=== PATIENT | female | born 2000 | race Caucasian/White ===

== ENCOUNTER 2020-03-21 16:13 | Emergency (ER) | payer SELFPAY ==
--- NOTE | 2020-03-21 17:02 | EDPHYS ---
Physician Documentation [facility] Name: Ruth Cortes Age: 19 yrs Sex: Female : 2000 Arrival Date: 03/21/2020 Time: 16:17 Bed 11 Private MD: ED Physician Beverly Joens HPI: 03/21 16:44 This 19 yrs old Female presents to ER via Ambulatory with complaints of kb Menstrual Cramps. 16:45 The patient presents with vaginal bleeding that is. Onset: The symptoms/episode kb began/occurred this morning. Modifying factors: The symptoms are alleviated by over the counter medications, NSAIDs, the symptoms are aggravated by nothing. Associated signs and symptoms: Pertinent positives: cramping, vaginal bleeding, Pertinent negatives: constipation, diarrhea, dyspareunia, dysuria, fever, hematuria, nausea, urinary frequency, vaginal discharge, vomiting. Severity of symptoms: At their worst the symptoms were moderate, in the emergency department the symptoms have improved, moderately. The patient has experienced similar episodes in the past, a few times, but today's symptoms are worse, more painful. The patient has not recently seen a physician. Pt reports she started her period this morning and has had terrible menstrual cramps. States she is about 2 weeks early and never has cramps this bad. Denies fever, vomiting, diarrhea. States she was nauseous earlier today. Took ibuprofen prior to arrival which decreased her pain . 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 - Social history:: Smoking status: Patient denies any tobacco usage or history of. ROS: 16:44 Constitutional: Negative for fever, chills, and weight loss, Cardiovascular: Negative kb for chest pain, palpitations, and edema, Respiratory: Negative for shortness of breath, cough, wheezing, and pleuritic chest pain, Back: Negative for injury and pain, MS/Extremity: Negative for injury and deformity, Skin: Negative for injury, rash, and discoloration, Neuro: Negative for headache, weakness, numbness, tingling, and seizure. 16:44 Abdomen/GI: Positive for abdominal cramps. 16:44 : Positive for vaginal bleeding. Exam: 16:44 Constitutional: This is a well developed, well nourished patient who is awake, alert, kb and in no acute distress. Head/Face: Normocephalic, atraumatic. Chest/axilla: Normal chest wall appearance and motion. Nontender with no deformity. No lesions are appreciated. Cardiovascular: Regular rate and rhythm with a normal S1 and S2. No gallops, murmurs, or rubs. Normal PMI, no JVD. No pulse deficits. Respiratory: Lungs have equal breath sounds bilaterally, clear to auscultation and percussion. No rales, rhonchi or wheezes noted. No increased work of breathing, no retractions or nasal flaring. Back: No spinal tenderness. No costovertebral tenderness. Full range of motion. Skin: Warm, dry with normal turgor. Normal color with no rashes, no lesions, and no evidence of cellulitis. MS/ Extremity: Pulses equal, no cyanosis. Neurovascular intact. Full, normal range of motion. Neuro: Awake and alert, GCS 15, oriented to person, place, time, and situation. Cranial nerves II-XII grossly intact. Motor strength 5/5 in all extremities. Sensory grossly intact. Cerebellar exam normal. Normal gait. 16:44 Abdomen/GI: Inspection: abdomen appears normal, Bowel sounds: normal, in all quadrants, Palpation: soft, in all quadrants, mild abdominal tenderness, in the right lower quadrant and left lower quadrant. Vital Signs: 16:25 BP 124 / 82; Pulse 70; Resp 15 S; Temp 97.2(TE); Pulse Ox 100% on R/A; Weight 107.05 kg ca1 (R); Height 5 ft. 7 in. (170.18 cm) (R); Pain 4/10; 16:25 Body Mass Index 36.96 (107.05 kg, 170.18 cm) ca1 MDM: 16:38 Patient medically screened. kb 16:43 Data reviewed: vital signs, nurses notes. Data interpreted: Pulse oximetry: on room air kb is 100 %. Interpretation: normal. Counseling: I had a detailed discussion with the patient and/or guardian regarding: the historical points, exam findings, and any diagnostic results supporting the discharge/admit diagnosis, lab results, the need for outpatient follow up, an OB/Gyne specialist, to return to the emergency department if symptoms worsen or persist or if there are any questions or concerns that arise at home. 03/21 16:38 Order name: Urine --Ancillary (enter results); Complete Time: 17:17 kb 03/21 16:38 Order name: Urine Dipstick--Ancillary (enter results); Complete Time: 17:17 kb Administered Medications: No medications were administered Disposition: 18:46 Co-signature as Attending Physician, Beverly Jones MD. ma2 Disposition: 03/21/20 17:01 Discharged to Home. Impression: Dysmenorrhea, unspecified. - Condition is Stable. - Discharge Instructions: Dysmenorrhea, [id number]. - Prescriptions for Ibuprofen 800 mg Oral Tablet - take 1 tablet by ORAL route every 8 hours As needed take with food; 30 tablet. - Medication Reconciliation Form, Thank You Letter, Antibiotic Education, Prescription Opioid Use, Work release form form. - Follow up: Emergency Department; When: As needed; Reason: Worsening of condition. Follow up: Private Physician; When: 2 - 3 days; Reason: Recheck today's complaints, Continuance of care, Re-evaluation by your physician. Signatures: Dispatcher [employer] Nikki Luna, ADDIE GARZA-Michela Dinh, Beverly Sinha RN, MD MD ma2 Acob, Cheryl, RN RN ca1 Corrections: (The following items were deleted from the chart) 17:31 17:01 03/21/2020 17:01 Discharged to Home. Impression: Dysmenorrhea, unspecified. iw Condition is Stable. Discharge Instructions: Dysmenorrhea, [id number]. Prescriptions for Ibuprofen 800 mg Oral Tablet - take 1 tablet by ORAL route every 8 hours As needed take with food; 30 tablet. and Forms are Medication Reconciliation Form, Thank You Letter, Antibiotic Education, Prescription Opioid Use. Follow up: Emergency Department; When: As needed; Reason: Worsening of condition. Follow up: Private Physician; When: 2 - 3 days; Reason: Recheck today's complaints, Continuance of care, Re-evaluation by your physician. kb
--- NOTE | 2020-03-21 17:02 | ER ---
Nurse's Notes [facility] Name: Ruth Cortes Age: 19 yrs Sex: Female : 2000 Arrival Date: 03/21/2020 Time: 16:17 Bed 11 Private MD: Diagnosis: Dysmenorrhea, unspecified Presentation: 03/21 16:25 Chief complaint: Patient states: 2 weeks early on my menstrual period which started ca1 today. Severe menstrual cramps started today. Took Ibuprofen and started to feel better. Reports nausea. Denies vomiting. Coronavirus screen: Proceed with normal triage. Patient denies a cough. Patient denies shortness of breath or difficulty breathing. Patient denies measured and/or subjective temperature greater than 100.4F prior to today's visit. Patient denies travel on a cruise ship or to a country the [facility] currently lists as an affected area. Patient denies contact with known and/or suspected case of COVID-19. Ebola Screen: Patient negative for fever greater than or equal to 101.5 degrees Fahrenheit, and additional compatible Ebola Virus Disease symptoms Patient denies exposure to infectious person. Patient denies travel to an Ebola-affected area in the 21 days before illness onset. No symptoms or risks identified at this time. Initial Sepsis Screen: Does the patient meet any 2 criteria? No. Patient's initial sepsis screen is negative. Does the patient have a suspected source of infection? No. Patient's initial sepsis screen is negative. Risk Assessment: Do you want to hurt yourself or someone else? Patient reports no desire to harm self or others. Onset of symptoms was March 21, 2020. 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 - Social history:: Smoking status: Patient denies any tobacco usage or history of. Screenin:58 Abuse screen: Denies threats or abuse. Denies injuries from another. Nutritional ca1 screening: No deficits noted. Tuberculosis screening: No symptoms or risk factors identified. Fall Risk None identified. Assessment: 16:58 General: Appears in no apparent distress. comfortable, Behavior is calm, cooperative, ca1 appropriate for age. Pain: Complains of pain in left lower quadrant and right lower quadrant Pain currently is 4 out of 10 on a pain scale. Is intermittent. Neuro: Level of Consciousness is awake, alert, obeys commands, Oriented to person, place, time, situation. Cardiovascular: Heart tones S1 S2 present Capillary refill < 3 seconds Patient's skin is warm and dry. Respiratory: Airway is patent Respiratory effort is even, unlabored, Respiratory pattern is regular, symmetrical, Breath sounds are clear bilaterally. GI: Abdomen is round non-distended, Bowel sounds present X 4 quads. Abd is soft and non tender X 4 quads. : No signs and/or symptoms were reported regarding the genitourinary system. EENT: No signs and/or symptoms were reported regarding the EENT system. Derm: Skin is intact, is healthy with good turgor, Skin is pink, warm \T\ dry. Musculoskeletal: Circulation, motion, and sensation intact. Capillary refill < 3 seconds. Vital Signs: 16:25 BP 124 / 82; Pulse 70; Resp 15 S; Temp 97.2(TE); Pulse Ox 100% on R/A; Weight 107.05 kg ca1 (R); Height 5 ft. 7 in. (170.18 cm) (R); Pain 4/10; 16:25 Body Mass Index 36.96 (107.05 kg, 170.18 cm) ca1 ED Course: 16:17 Patient arrived in ED. as 16:21 [facility] kb 16:21 Beverly Jones MD is Attending Physician. kb 16:27 Triage completed. ca1 16:28 Arm band placed on right wrist. ca1 16:58 Suly Raza, YAHIR is Primary Nurse. ca1 16:58 Patient has correct armband on for positive identification. ca1 16:58 No provider procedures requiring assistance completed. Patient did not have IV access ca1 during this emergency room visit. Administered Medications: No medications were administered Outcome: 17:01 Discharge ordered by . kb 17:31 Discharged to home ambulatory. iw 17:31 Condition: good 17:31 Discharge instructions given to patient, Instructed on discharge instructions, follow up and referral plans. medication usage, Demonstrated understanding of instructions, follow-up care, medications, Prescriptions given X 1. 17:31 Patient left the ED. iw Signatures: Nikki Borja, ADDIE GARZA-Ivet Kaminski Irene, RN RN iw Suly Raza RN RN ca1 Corrections: (The following items were deleted from the chart) 16:28 16:25 Acuity: SATYA 3 ca1 ca1 16:28 16:25 BP 124 / 82; Pulse 70bpm; Resp 15bpm; Spontaneous; Pulse Ox 100% RA; Temp 97.2F ca1 Temporal; 107.05 kg Reported; Height 5 ft. 7 in. Reported; BMI: 36.9; ca1
[2020-03-21 17:16] LABS: Urine Blood 3+ (NEG); Urine Glucose NEGATIVE (NEG); Urine Protein 2+ (NEG); Urine Specific Gravity 1.025 (1.005-1.030); Urine pH 7.5 (5.0-7.0)
[2020-03-21 17:38] VITALS: BP 124/82; TEMP 97.2; O2SAT 100
== END 2020-03-21 17:31 | disposition home or self-care (01) ==
LOC: ER 16:13
DX: N94.6 Dysmenorrhea, unspecified (principal); Z88.3 Allergy status to other anti-infective agents
CPT/HCPCS: 81003; 81025; 99282

== ENCOUNTER 2022-06-25 01:28 | Emergency (ER) | payer OTHER, SELFPAY ==
--- OUTSIDE RECORDS SUMMARY | 2022-06-25 01:31 | XMS REPORT | Continuity of Care Document ---
:2000 Author Organization [facility] t Address [address] [place] [address] Care Team Providers Name Role Phone PCP, PATIENT DOES NOT HAVE A Primary Care Physician Unavaila ARGENIS Mooney Attending Clinician Unavailable Argenis Sauceda MD Attending Clinician Doctor Unassigned, [place] Attending Clinician Unavailable Payers Payer Name Policy Type Policy Number Effective Date Expiration Date [facility] [id number] 2021 MEDICAID 00:00:00 Problems Condition Condition Condition Status Onset Resolution Last Treating Co mments Source Name Details Category Date Date Treatment Clinician Date Disease Active U nivers care and care and 8-18 [place] Medical immediatel immediatel Br [facility] y after y after delivery delivery Missed Missed Disease Active 2020-10 Univers menses menses 2-21 ity of 00:00: [address] Allergies, Adverse Reactions, Alerts Allergy Allergy Status Severity Reaction(s) Onset Inactive Treating Comm ents Source Name Type Date Date Clinician Azithrom Propensi Active Hives Univer s ycin ty to 8-02 ity of (Bulk) adverse 00:00: [place] reaction [address] [place] [address] AZITHROM DRUG Active Hives Univers YCIN 8-02 ity of (BULK) 00:00: [address] Social History Social Habit Start Date Stop Date Quantity Comments Source History of Passive smoker University of tobacco use [facility] Alcohol intake 2022-05-07 2022-05-07 Ex-drinker [facility] 00:00:00 00:00:00 (finding) [facility] Exposure to 2022-04-26 2022-05-06 Not sure [facility]-CoV-2 00:00:00 12:38:00 [facility] (event) [place] Tobacco use and 2022-05-06 2022-05-06 Smokeless tobacco Un iversity of exposure 00:00:00 00:00:00 non-user [facility] Sex Assigned At [birth year] Universit y of 00:00:00 00:00:[address] [facility] Smoking Status Start Date Stop Date Source Never smoked tobacco [facility] Medications Ordered Filled Start Stop Current Ordering Indication Dosage Frequency Signature Comments Components Source Medication Medication Date Date Medication? Clinician (SIG) Name Name levonorgest 2021- No [id number] 1{devic Univers reL 06-17- e} ity of (MIRENA) 21:15: 20:17 [place] IUD 1 00 :00 [facility] levonorgest 2021- No [id number] 1{devic 1 Device, Univers reL 06-17- e} Intrauteri ity of (MIRENA) 21:15: 20:17 ne, ONCE, [place] IUD 1 00 :00 1 dose, On [facility] 06/17/22 Branch at 1615, Routine levonorgest 2021- No [id number] 1{devic Univers reL 06-17-08 e} ity of (MIRENA) 21:15: 20:17 [place] IUD 1 00 :00 [facility] levonorgest 2021- No [id number] 1{devic 1 Device, Univers reL 06-17-08 e} Intrauteri ity of (MIRENA) 21:15: 20:17 ne, ONCE, [place] IUD 1 00 :00 1 dose, On [facility] 06/17/22 Branch at 1615, Routine No known No No known Unive rs medications 06-17 medication it y of 15:23: s [address] 2021- No [id number] 1{tbl} Take 1 Univers vitamin 05-28 109 tablet by ity of w/FA 00:00: 00:00 mouth in [place] (THRIVITE 00 :00 the Medical RX) tablet morning. Bran h 2021- No [id number] 1{tbl} Take 1 Univers vitamin 05-28- 109 tablet by ity of w/FA 00:00: 00:00 mouth in [place] (THRIVITE 00 :00 the Medical RX) tablet morning. [facility] miSOPROStoL 2021- No [id number] 200ug Take 1 Univers 200 mcg 8-08 tablet by ity of tablet 00:00: 00:00 mouth in [place] 00 :00 the Medical morning Branch and 1 tablet in the evening. Take the night before and the morning of the procedure. hydrocortis 2021- No [id number] 25mg Insert 1 Univers one 25 mg 8-08 Suppositor ity of suppository 00:00: 00:00 y into [place] 00 :00 rectum in [facility] morning and 1 Suppositor y in the evening. polyethylen 2021- No [id number] 1{packe Take 1 Univers e glycol 8-08 t} Packet by ity o f 3350 00:00: 00:00 mouth [place] (MIRALAX) 00 :00 every 24 Medica l 17 gram (twenty-fo Branch powder ur) hours. miSOPROStoL 2021- No [id number] 200ug Take 1 Univers 200 mcg 8-08 tablet by ity of tablet 00:00: 00:00 mouth in [place] 00 :00 the [facility] Branch and 1 tablet in the evening. Take the night before and the morning of the procedure. hydrocortis 2021- No [id number] 25mg Insert 1 Univers one 25 mg 818 09-08 Suppositor ity of suppository 00:00: 00:00 y into [place] 00 :00 rectum in [facility] the [place] morning and 1 Suppositor y in the evening. polyethylen 2021- No [id number] 1{packe Take 1 Univers e glycol 8-18 09-08 t} Packet by ity o f 3350 00:00: 00:00 mouth [place] (MIRALAX) 00 :00 every 24 Medica l 17 gram (twenty-fo Branch powder ur) hours. docusate 2021- No [id number] 200mg Take 2 Univers 100 mg 05-08 109 capsules ity of capsule 00:00: 00:00 by mouth [place] 00 :00 once daily Medical as needed Branch for Constipati on. docusate 2021- No [id number] 200mg Take 2 Univers 100 mg 05-08 109 capsules ity of capsule 00:00: 00:00 by mouth [place] 00 :00 once daily Medical as needed Branch for Constipati on. Immunizations Ordered Filled Immunization Date Status Comments [facility] e Immunization Name Name TDAP 2022-02-18 Completed [facility] 00:00:[address] [facility] TDAP 2022-02-18 Completed [facility] 00:00:[address] [facility] TDAP 2022-02-18 Completed [facility] 00:00:[address] [facility] SARS-COV-2 COVID-19 2021-10-26 Completed Unive rsity of PFIZER VACCINE 00:00:00 [facility] SARS-COV-2 COVID-19 2021-10-26 Completed Unive rsity of PFIZER VACCINE 00:00:00 [facility] SARS-COV-2 COVID-19 2021-10-26 Completed Unive rsity of PFIZER VACCINE 00:00:00 [facility] SARS-COV-2 COVID-19 2021-06-03 Completed Unive rsity of PFIZER VACCINE 00:00:00 [facility] SARS-COV-2 COVID-19 2021-06-03 Completed Unive rsity of PFIZER VACCINE 00:00:00 [facility] SARS-COV-2 COVID-19 2021-06-03 Completed Unive rsity of PFIZER VACCINE 00:00:00 [facility] Vital Signs Vital Name Observation Time Observation Value Comments Source Systolic blood 2022-06-17 15:51:00 114 mm[Hg] Univer sity of pressure [facility] Diastolic blood 2022-06-17 15:51:00 78 mm[Hg] Unive rsity of pressure [facility] Heart rate 2022-06-17 15:51:00 62 /min Universi [facility] Body temperature 2022-06-17 15:51:00 36.78 Reina Univ ersity of [facility] Respiratory rate 2022-06-17 15:51:00 18 /min [facility] Body height 2022-06-17 15:51:00 170.2 cm [facility] Body weight 2022-06-17 15:51:00 109.317 kg [facility] BMI 2022-06-17 15:51:00 37.75 kg/m2 [facility] Procedures Procedure Date / Time Performing Clinician Source Performed POCT TEST 2022-06-17 00:00:00 Argenis Sauceda [facility] DME/SUPPLY JUSTIFICATION 2022-05-24 05:01:00 Doctor Unassigned, No [facility] Name [facility] Encounters Start End Encounter Admission Attending Care Care Encounter Source Date/Time Date/Time Type Type Clinicians Facility Department ID 2022-06-29 2022-06-29 Outpatient R ARGENIS SAUCEDA [facility] [id number] Univers 09:30:00 09:30:00 [id number] ity [facility] 2022-06-29 2022-06-29 Outpatient R ARGENIS SAUCEDA [facility] [id number] Univers 09:30:00 09:30:00 ity [facility] 2022-06-17 2022-06-17 Office Argenis Sauceda [facility] [id number] Univers 10:30:00 11:38:13 Visit YASMEEN [id number] it y of [id number] [facility] [id number] [facility] [address] Branch 2022-05-24 2022-05-24 Orders Doctor STEVO [id number] Univers 00:00:00 00:00:00 Only Unassigned, JOEL [id number] ity of [place] [facility] [id number] [place] [id number] [place] [address] Branch Results Test Description Test Time Test Comments Results Result Comments Source POCT TEST 2022-06-17 15:59:00 Test Item Value Reference Range Interpretation Comme nts POCT PREG (test code = 1605) Negative On board controls acceptable with C Line (test code = 3574) Yes POCT PREG LOT # (test code = 3575) POCT PREG TEST DATE (test code = 3576) [id number] 15:59:00 Test Item Value Reference Range Interpretation Comments POCT PREG (test code = 1605) Negative On board controls acceptable with C Yes Line (test code = 3574) POCT PREG LOT # (test code = 3575) POCT PREG TEST DATE (test code = 3576) [facility]
--- NOTE | 2022-06-25 01:46 | EDPHYS ---
Physician Documentation [facility] Name: Ruth Cortes Age: 21 yrs Sex: Female : 2000 Arrival Date: 06/25/2022 Time: 01:32 Bed 6 Private MD: ED Physician Christopher Chung HPI: 06/25 01:42 This 21 yrs old Female presents to ER via Unassigned with complaints of Hives. kb 01:42 The patient's rash thought to be caused by insect bites. The rash is located on the kb body diffusely. The rash can be described as erythematous. Onset: The symptoms/episode began/occurred 2 day(s) ago. Associated signs and symptoms: Pertinent positives: itching. Severity of symptoms: At their worst the symptoms were moderate in the emergency department the symptoms are unchanged. Treatment given at home: Benadryl, OTC lotion/cream. The patient has not experienced similar symptoms in the past. The patient has not recently seen a physician. Pt reports she has diffuse itching and red spots after sleeping on her brothers couch 2 days ago. 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 - Social history:: Smoking status: Reported history of juuling and/or vaping. ROS: 01:40 Constitutional: Negative for fever, chills, and weight loss. kb 01:40 Skin: Positive for rash, diffusely. 01:40 All other systems are negative. Exam: 01:40 Constitutional: This is a well developed, well nourished patient who is awake, alert, kb and in no acute distress. Head/Face: Normocephalic, atraumatic. ENT: Moist Mucous membranes Cardiovascular: Regular rate and rhythm with a normal S1 and S2. No gallops, murmurs, or rubs. No pulse deficits. Respiratory: Respirations even and unlabored. No increased work of breathing. Talking in full sentences MS/ Extremity: Pulses equal, no cyanosis. Neurovascular intact. Full, normal range of motion. Neuro: Awake and alert, GCS 15, oriented to person, place, time, and situation. Moves all extremities. Normal gait. Psych: Awake, alert, with orientation to person, place and time. Behavior, mood, and affect are within normal limits. 01:40 Skin: rash a moderate rash is noted, and is diffusely located, apparent insect bites. Vital Signs: 01:44 BP 111 / 71; Pulse 68; Resp 18; Temp 98.2; Pulse Ox 100% ; Weight 108.86 kg; Height 5 tw5 ft. 7 in. (170.18 cm); Pain 5/10; 01:44 Body Mass Index 37.59 (108.86 kg, 170.18 cm) tw5 MDM: 01:34 Patient medically screened. rn 01:40 Data reviewed: vital signs, nurses notes. Data interpreted: Pulse oximetry: on room air kb is 100 %. Interpretation: normal. Counseling: I had a detailed discussion with the patient and/or guardian regarding: the historical points, exam findings, and any diagnostic results supporting the discharge/admit diagnosis, the need for outpatient follow up, a family practitioner, to return to the emergency department if symptoms worsen or persist or if there are any questions or concerns that arise at home. Administered Medications: 01:51 Drug: Pepcid (famotidine) 20 mg Route: PO; jb4 01:51 Follow up: Response: Medication administered at discharge. jb4 01:51 Drug: Atarax (hydrOXYzine) 25 mg Route: PO; jb4 01:51 Follow up: Response: Medication administered at discharge. jb4 Disposition: 02:16 Co-signature as Attending Physician, Christopher Chung MD. rn Disposition Summary: 06/25/22 01:45 Discharge Ordered Location: Home kb Condition: Stable kb Diagnosis - Insect bite - diffuse kb Followup: kb - With: Emergency Department - When: As needed - Reason: Worsening of condition Followup: kb - With: Private Physician - When: 2 - 3 days - Reason: Recheck today's complaints, Continuance of care, Re-evaluation by your physician Discharge Instructions: - Discharge Summary Sheet kb - Insect Bite, Adult, [id number] kb Forms: - Medication Reconciliation Form kb - Thank You Letter kb - Antibiotic Education kb - Prescription Opioid Use kb Prescriptions: - Hydroxyzine HCl 25 mg Oral Tablet - take 1 tablet by ORAL route every 6 hours As needed; 30 tablet; Refills: 0, kb Product Selection Permitted - Pepcid 20 mg Oral Tablet - take 1 tablet by ORAL route every 12 hours for 5 days; 10 tablet; Refills: 0, kb Product Selection Permitted Signatures: Nikki Borja, Christopher Bolivar MD MD rn Bryson, James, RN RN jb4 Razia Andre tw5 Corrections: (The following items were deleted from the chart) 01:43 01:42 Treatment given at home: nazanin Arredondo kb
--- NOTE | 2022-06-25 01:54 | ER ---
Nurse's Notes [facility] Name: Ruth Cortes Age: 21 yrs Sex: Female : 2000 Arrival Date: 06/25/2022 Time: 01:32 Bed 6 Private MD: Diagnosis: Insect bite - diffuse Presentation: 06/25 01:44 Chief complaint: Patient states: "I spent the night at my brothers house and I woke up tw5 feeling really itchy, as the day as gone on the bites are getting worse.". Coronavirus screen: Vaccine status: Patient reports receiving the 2nd dose of the covid vaccine. Downstream. Ebola Screen: Patient negative for fever greater than or equal to 101.5 degrees Fahrenheit, and additional compatible Ebola Virus Disease symptoms Patient denies exposure to infectious person. Patient denies travel to an Ebola-affected area in the 21 days before illness onset. Risk Assessment: Do you want to hurt yourself or someone else? Patient reports no desire to harm self or others. 01:44 Method Of Arrival: Ambulatory tw5 01:44 Acuity: SATYA 4 tw5 Triage Assessment: 01:47 General: Appears in no apparent distress. Behavior is calm, cooperative. Pain: Pain tw5 currently is 5 out of 10 on a pain scale. KICK BOXER: 01:47 LMP 06/25/2022 tw5 Historical: - Allergies: 01:47 Zithromax; tw5 - PMHx: 01:47 None; tw5 - Immunization history:: Flu vaccine is not up to date. - Social history:: Smoking status: Reported history of juuling and/or vaping. Screenin:52 Abuse screen: Denies threats or abuse. Nutritional screening: No deficits noted. jb4 Tuberculosis screening: No symptoms or risk factors identified. Fall Risk None identified. Assessment: 01:52 Reassessment: Patient appears in no apparent distress at this time. Patient and/or jb4 family updated on plan of care and expected duration. Pain level reassessed. Patient is alert, oriented x 3, equal unlabored respirations, skin warm/dry/pink. Vital Signs: 01:44 BP 111 / 71; Pulse 68; Resp 18; Temp 98.2; Pulse Ox 100% ; Weight 108.86 kg; Height 5 tw5 ft. 7 in. (170.18 cm); Pain 5/10; 01:44 Body Mass Index 37.59 (108.86 kg, 170.18 cm) tw5 ED Course: 01:32 Patient arrived in ED. ja2 01:34 Christopher Chung MD is Attending Physician. rn 01:40 Nik[facility] Bor[facility]-C [facility]. kb 01:44 José Luis Riley, RN is Primary Nurse. jb4 01:47 Triage completed. tw5 01:47 Arm band placed on. tw5 01:52 Patient has correct armband on for positive identification. Bed in low position. Call jb4 light in reach. Side rails up X 1. Client placed on continuous cardiac and pulse oximetry monitoring. NIBP monitoring applied. 01:52 No provider procedures requiring assistance completed. Patient did not have IV access jb4 during this emergency room visit. Administered Medications: 01:51 Drug: Pepcid (famotidine) 20 mg Route: PO; jb4 01:51 Follow up: Response: Medication administered at discharge. jb4 01:51 Drug: Atarax (hydrOXYzine) 25 mg Route: PO; jb4 01:51 Follow up: Response: Medication administered at discharge. jb4 Medication: 01:52 VIS not applicable for this client. jb4 Outcome: 01:45 Discharge ordered by . kb 01:52 Discharged to home ambulatory. jb4 01:52 Condition: stable 01:52 Discharge instructions given to patient, Instructed on discharge instructions, follow up and referral plans. medication usage, Demonstrated understanding of instructions, follow-up care, medications, Prescriptions given X 2. 01:53 Patient left the ED. jb4 Signatures: Nikki Borja FNP-C FNP-Skipb Christopher Chung MD MD rn Bryson, James, RN RN jb4 Erin Borjas Artemio Andrefany tw5
[2022-06-25] MEDS ORDERED: FAMOTIDINE 20 MG TAB ONE (01:56)
[2022-06-25] MEDS ORDERED: hydrOXYzine HCL 25 MG TAB ONE (01:56)
[2022-06-26 12:48] VITALS: BP 111/71; TEMP 98.2; O2SAT 100
== END 2022-06-25 01:53 | disposition home or self-care (01) ==
LOC: ER 01:28
DX: R21 Rash and other nonspecific skin eruption (principal); W57.XXXA Bitten or stung by nonvenomous insect and other nonvenomous arthropods, initial encounter
CPT/HCPCS: 99283

== ENCOUNTER 2023-07-15 07:34 | Emergency (ER) | payer BC ==
--- OUTSIDE RECORDS SUMMARY | 2023-07-15 07:40 | XMS REPORT | Continuity of Care Document ---
:2000 Author Organization [facility] t Address [address] [place] [address]. [address] [place] [id number] Care Team Providers Name Role Phone Collins Miller Primary Care Physician KELI GILLTETE Attending Clinician Unavailable Collins Miller Attending Clinician COLLINS SEVILLA Attending Clinician Unavailable CHELSEA NOEL Attending Clinician Unavailable CHELSEA NOEL Attending Clinician Unavailable HANNAH MORRISON Attending Clinician Unavailable HANNAH MORRISON Attending Clinician Unavailable Doctor Unassigned, [place] Attending Clinician Unavailable 2, [facility] Attending Clinician Unavailable UNKNOWN, ATTENDING Attending Clinician Unavailable CAITIE LEI Attending Clinician Unavailable Keli Gillette MD Attending Clinician Caitie Lei MD Attending Clinician Regan Santillan MD Attending Clinician [phone] Jaden Oneal MD Attending Clinician Salvatore Franklin CRNA Attending Clinician Only, [facility] Attending Clinician Unavailable Pob, [facility] Main Attending Clinician Unavailable 2, [facility] Room Attending Clinician Unavailable Sushil Rm MD Attending Clinician SUSHIL RM Attending Clinician Unavailable SUSHIL RM Attending Clinician Unavailable Ultrasound, [facility] Attending Clinician Unavailable Mayra Crowley MD Attending Clinician [phone] MAYRA CROWLEY Attending Clinician Unavailable 1, [facility] Room Attending Clinician Unavailable Bandar Welsh MD Attending Clinician [phone] BANDAR WELSH Attending Clinician Unavailable Nusrat Wilder Attending Clinician KELI GILLETTE Admitting Clinician Unavailable CAITIE LEI Admitting Clinician Unavailable Keli Gillette MD Admitting Clinician Caitie Lei MD Admitting Clinician Payers Payer Name Policy Type Policy Number Effective Date Expiration Date Maria L [facility] [id number] 2021 MEDICAID 00:00:00 Problems Condition Condition Condition [...] Univers menses menses 2-21 ity of 00:00: [address] Allergies, Adverse Reactions, Alerts Allergy Allergy Status Severity Reaction(s) Onset Inactive Treating Comm ents Source Name Type Date Date Clinician Azithrom Propensi Active Hives Univer s ycin ty to 8-02 ity of (Bulk) adverse 00:00: [place] reaction [address] [place] [address] AZITHROM DRUG Active Hives Univers YCIN 8-02 ity of (BULK) 00:00: [address] Social History Social Habit Start Date Stop Date Quantity Comments Source [facility] of tobacco Passive smoker Un iversity of use [facility] Exposure to 2023-02-08 2023-02-18 Not sure [facility] SARS-CoV-2 (event) 00:00:00 10:32:[address] [facility] Alcohol intake 2023-02-18 2023-02-18 Ex-drinker [facility] 00:00:00 00:00:00 (finding) [facility] History of Social 2023-01-10 2023-01-10 Univers ity of function 00:00:00 00:00:[address] [facility] Tobacco use and 2022-05-06 2022-05-06 Smokeless Universit y of exposure 00:00:00 00:00:00 tobacco non-user [facility] Sex Assigned At [birth year] [facility] y of 00:00:00 00:00:[address] [facility] Smoking Status Start Date Stop Date Source Never smoked tobacco [facility] Medications Ordered Filled Start Stop Current Ordering Indication Dosage Frequency Signature Comments Components Source Medication Medication Date Date Medication? Clinician (SIG) Name Name rizatriptan 2022-10 Yes [id number] 10mg Take 1 U nivers (MAXALT) 10 0-03 tablet by ity of mg tablet 00:00[place] 00 needed for Medical Migraine. Branch May repeat in 2 hours if needed venlafaxine Yes [id number] 75mg Take 1 Univers XR (EFFEXOR 5-12 capsule by it y of XR) 75 mg 00:00: mouth [place] 24 hr 00 daily with Medical capsule breakfast. Branch rizatriptan Yes [id number] 10mg Take 1 U nivers (MAXALT) 10 5-12 tablet by ity of mg tablet 00:00: [place] 00 needed for Medical Migraine. Branch May repeat in 2 hours if needed ondansetron Yes [id number] 8mg Take 1 U nivers 8 mg tablet 5-12 tablet by ity of 00:00: mouth [place] 00 every 8 Medical (eight) Branch hours as needed for Nausea and Vomiting (N/V). venlafaxine Yes [id number] 75mg Take 1 Univers XR (EFFEXOR 5-12 capsule by it y of XR) 75 mg 00:00: mouth [place] 24 hr 00 daily with Medical capsule breakfast. Branch rizatriptan Yes [id number] 10mg Take 1 U nivers (MAXALT) 10 5-12 tablet by ity of mg tablet 00:00: [place] 00 needed for Medical Migraine. Branch May repeat in 2 hours if needed ondansetron Yes [id number] 8mg Take 1 U nivers 8 mg tablet 5-12 tablet by ity of 00:00: mouth [place] 00 every 8 Medical (eight) Branch hours as needed for Nausea and Vomiting (N/V). venlafaxine 3-0 Yes [id number] 75mg Take 1 Univers XR (EFFEXOR 5-12 capsule by it y of XR) 75 mg 00:00: mouth [place] 24 hr 00 daily with Medical capsule breakfast. Branch rizatriptan 2022-0 Yes [id number] 10mg Take 1 U nivers (MAXALT) 10 5-12 tablet by ity of mg tablet 00:00: [place] 00 needed for Medical Migraine. Branch May repeat in 2 hours if needed ondansetron 2022-0 Yes [id number] 8mg Take 1 U nivers 8 mg tablet 5-12 tablet by ity of 00:00: mouth [place] 00 every 8 Medical (eight) Branch hours as needed for Nausea and Vomiting (N/V). venlafaxine 2022-0 Yes [id number] 75mg Take 1 Univers XR (EFFEXOR 5-12 capsule by it y of XR) 75 mg 00:00: mouth [place] 24 hr 00 daily with Medical capsule breakfast. Branch ondansetron 2022-0 Yes [id number] 8mg Take 1 U nivers 8 mg tablet 5-12 tablet by ity of 00:00: mouth [place] 00 every 8 Medical (eight) Branch hours as needed for Nausea and Vomiting (N/V). venlafaxine 2022-0 Yes [id number] 75mg Take 1 Univers XR (EFFEXOR 5-12 capsule by it y of XR) 75 mg 00:00: mouth [place] 24 hr 00 daily with Medical capsule breakfast. Branch ondansetron 2022-0 Yes [id number] 8mg Take 1 U nivers 8 mg tablet 5-12 tablet by ity of 00:00: mouth [place] 00 every 8 Medical (eight) Branch hours as needed for Nausea and Vomiting (N/V). rizatriptan 2022-0 3- No [id number] 10mg Take 1 Univers (MAXALT) 10 5-12 10-03 tablet by it y of mg tablet 00:00: 00:00 mouth as [place] 00 :00 needed for Medical Migraine. Branch May repeat in 2 hours if needed VENLAFAXINE 3-0 Yes [id number] 37.5mg TAKE 1 Univers XR 37.5 mg 5-01 CAPSULE BY ity of 24 hr 00:00: MOUTH [place] capsule 00 DAILY WITH Medica l BREAKFAST. Branch VENLAFAXINE 0 2022- No [id number] 37.5mg TAKE 1 Univers XR 37.5 mg 02-07 CAPSULE BY it y of 24 hr 00:00: 00:00 MOUTH [place] capsule 00 :00 DAILY WITH Medica l BREAKFAST. Branch VENLAFAXINE 0 2022- No [id number] 37.5mg TAKE 1 Univers XR 37.5 mg 02-07 CAPSULE BY it y of 24 hr 00:00: 00:00 MOUTH [place] capsule 00 :00 DAILY WITH Medica l BREAKFAST. Branch ALBUTEROL 0 Yes [id number] USE 2 Uni vers 90 4-17 PUFFS BY ity of mcg/actuati 00:00: MOUTH [place] on inhaler 00 EVERY 6 Medica l HOURS Branch NEEDED FOR WHEEZE OR FOR SHORTNESS OF BREATH ALBUTEROL Yes [id number] USE 2 Uni vers 90 4-17 PUFFS BY ity of mcg/actuati 00:00: MOUTH [place] on inhaler 00 EVERY 6 Medica l HOURS Branch NEEDED FOR WHEEZE OR FOR SHORTNESS OF BREATH ALBUTEROL 0 Yes [id number] USE 2 Uni vers 90 4-17 PUFFS BY ity of mcg/actuati 00:00: MOUTH [place] on inhaler 00 EVERY 6 Medica l HOURS Branch NEEDED FOR WHEEZE OR FOR SHORTNESS OF BREATH ALBUTEROL 0 Yes [id number] USE 2 Uni vers 90 4-17 PUFFS BY ity of mcg/actuati 00:00: MOUTH [place] on inhaler 00 EVERY 6 Medica l HOURS Branch NEEDED FOR WHEEZE OR FOR SHORTNESS OF BREATH ALBUTEROL 0 Yes [id number] USE 2 Uni vers 90 4-17 PUFFS BY ity of mcg/actuati 00:00: MOUTH [place] on inhaler 00 EVERY 6 Medica l HOURS Branch NEEDED FOR WHEEZE OR FOR SHORTNESS OF BREATH ALBUTEROL 0 Yes [id number] USE 2 Uni vers 90 4-17 PUFFS BY ity of mcg/actuati 00:00: MOUTH [place] on inhaler 00 EVERY 6 Medica l HOURS Branch NEEDED FOR WHEEZE OR FOR SHORTNESS OF BREATH ALBUTEROL 0 Yes [id number] USE 2 Uni vers 90 4-17 PUFFS BY ity of mcg/actuati 00:00: MOUTH [place] on inhaler 00 EVERY 6 Medica l HOURS Branch NEEDED FOR WHEEZE OR FOR SHORTNESS OF BREATH venlafaxine 0 Yes [id number] 37.5mg Take 1 Univers XR (EFFEXOR 4-03 capsule by it y of XR) 37.5 mg 00:00: mouth [place] 24 hr 00 daily with Medical capsule breakfast. Branch venlafaxine Yes [id number] 37.5mg Take 1 Univers XR (EFFEXOR 4-03 capsule by it y of XR) 37.5 mg 00:00: mouth [place] 24 hr 00 daily with Medical capsule breakfast. Branch venlafaxine Yes [id number] 37.5mg Take 1 Univers XR (EFFEXOR 4-03 capsule by it y of XR) 37.5 mg 00:00: mouth [place] 24 hr 00 daily with Medical capsule breakfast. Branch venlafaxine 2022- No [id number] 37.5mg Take 1 Univers XR (EFFEXOR 4-03 05-01 capsule by i ty of XR) 37.5 mg 00:00: 00:00 [place] 24 [place] 00 :00 daily with Medical capsule breakfast. Branch levonorgest Yes 1{devic 1 Device Univers reL 3-21 e} by ity of (MIRENA) 20 15:59: Intrauteri [place] mcg/24 42 ne route Medical hours (7 once now. Branch yrs) 52 mg IUD levonorgest Yes 1{devic 1 Device Univers reL 3-21 e} by ity of (MIRENA) 20 15:59: Intrauteri [place] mcg/24 42 ne route Medical hours (7 once now. Branch yrs) 52 mg IUD levonorgest Yes 1{devic 1 Device Univers reL 3-21 e} by ity of (MIRENA) 20 15:59: Intrauteri [place] mcg/24 42 ne route Medical hours (7 once now. Branch yrs) 52 mg IUD levonorgest 0 Yes 1{devic 1 Device Univers reL 3-21 e} by ity of (MIRENA) 20 15:59: Intrauteri [place] mcg/24 42 ne route Medical hours (7 once now. Branch yrs) 52 mg IUD levonorgest 2023-0 Yes 1{devic 1 Device Univers reL 3-21 e} by ity of (MIRENA) 20 15:59: Intrauteri [place] mcg/24 42 ne route Medical hours (7 once now. Branch yrs) 52 mg IUD levonorgest 2022-0 Yes 1{devic 1 Device Univers reL 3-21 e} by ity of (MIRENA) 20 15:59: Intrauteri [place] mcg/24 42 ne route Medical hours (7 once now. Branch yrs) 52 mg IUD levonorgest 2022-0 Yes 1{devic 1 Device Univers reL 3-21 e} by ity of (MIRENA) 20 15:59: Intrauteri [place] mcg/24 42 ne route Medical hours (7 once now. Branch yrs) 52 mg IUD levonorgest 2022-0 Yes 1{devic 1 Device Univers reL 3-21 e} by ity of (MIRENA) 20 15:59: Intrauteri [place] mcg/24 42 ne route Medical hours (7 once now. Branch yrs) 52 mg IUD levonorgest 0 Yes 1{devic 1 Device Univers reL 3-21 e} by ity of (MIRENA) 20 15:59: Intrauteri [place] mcg/24 42 ne route Medical hours (7 once now. Branch yrs) 52 mg IUD levonorgest 0 Yes 1{devic 1 Device Univers reL 3-21 e} by ity of (MIRENA) 20 15:59: Intrauteri [place] mcg/24 42 ne route Medical hours (7 once now. Branch yrs) 52 mg IUD levonorgest 0 Yes 1{devic 1 Device Univers reL 3-21 e} by ity of (MIRENA) 20 15:59: Intrauteri [place] mcg/24 42 ne route Medical hours (7 once now. Branch yrs) 52 mg IUD methylPREDN 2022-0 Yes [id number] Take by Univers ISolone 3-21 mouth ity of (MEDROL, 00:00: SEE-INSTRU [place] JEFF,) 4 mg 00 CTIONS. Medica l tablets follow Branch package directions albuterol 0 Yes [id number] 2{puff} Inhale 2 Univers 90 3-21 Puffs ity of mcg/actuati 00:00: every 6 [place] on inhaler 00 (six) Medical hours as Branch needed for Wheezing or Shortness of Breath. methylPREDN 2023-0 Yes [id number] Take by Univers ISolone 3-21 mouth ity of (MEDROL, 00:00: SEE-INSTRU [place] JEFF,) 4 mg 00 CTIONS. Medica l tablets follow Branch package directions albuterol 2023-0 Yes [id number] 2{puff} Inhale 2 Univers 90 3-21 Puffs ity of mcg/actuati 00:00: every 6 [place] on inhaler 00 (six) Medical hours as Branch needed for Wheezing or Shortness of Breath. methylPREDN 2023-0 Yes [id number] Take by Univers ISolone 3-21 mouth ity of (MEDROL, 00:00: SEE-INSTRU [place] JEFF,) 4 mg 00 CTIONS. Medica l tablets follow Branch package directions albuterol 2023-0 Yes [id number] 2{puff} Inhale 2 Univers 90 3-21 Puffs ity of mcg/actuati 00:00: every 6 [place] on inhaler 00 (six) Medical hours as Branch needed for Wheezing or Shortness of Breath. methylPREDN 2023-0 Yes [id number] Take by Univers ISolone 3-21 mouth ity of (MEDROL, 00:00: SEE-INSTRU [place] JEFF,) 4 mg 00 CTIONS. Medica l tablets follow Branch package directions albuterol 2023-0 Yes [id number] 2{puff} Inhale 2 Univers 90 3-21 Puffs ity of mcg/actuati 00:00: every 6 [place] on inhaler 00 (six) Medical hours as Branch needed for Wheezing or Shortness of Breath. methylPREDN 2023-0 Yes [id number] Take by Univers ISolone 3-21 mouth ity of (MEDROL, 00:00: SEE-INSTRU [place] JEFF,) 4 mg 00 CTIONS. Medica l tablets follow Branch package directions methylPREDN 2023-0 Yes [id number] Take by Univers ISolone 3-21 mouth ity of (MEDROL, 00:00: SEE-INSTRU [place] JEFF,) 4 mg 00 CTIONS. Medica l tablets follow Branch package directions methylPREDN 2023-0 2023- No [id number] Take by Univers ISolone 3-21 05-12 mouth ity of (MEDROL, 00:00: 00:00 [place] JEFF,) 4 mg 00 :00 CTIONS. Medica l tablets follow Branch package directions methylPREDN 2022- No [id number] Take by Univers ISolone 12-28-12 mouth ity of (MEDROL, 00:00: 00:00 [place]INSTRU [place] JEFF,) 4 mg 00 :00 CTIONS. Medica l tablets follow Branch package directions albuterol 2022- No [id number] 2{puff} Inhale 2 Univers 90 12-28 04-17 Puffs ity of mcg/actuati 00:00: 00:00 every 6 [place] inhaler 00 :00 (six) Medical hours as Branch needed for Wheezing or Shortness of Breath. amoxicillin 2022- No [id number] 1{tbl} Take 1 Univers -clavulanat 12-28 [id number] tablet by i ty of e 00:00: 04:59 mouth in [place] (AUGMENTIN) 00 :00 the Medical 875-125 mg morning Branch per tablet and 1 tablet in the evening. Do all this for 10 days. amoxicillin 2022- No [id number] 1{tbl} Take 1 Univers -clavulanat 12-28 [id number] tablet by i ty of e 00:00: 04:59 mouth in [place] (AUGMENTIN) 00 :00 the Medical 875-125 mg morning Branch per tablet and 1 tablet in the evening. Do all this for 10 days. levonorgest Yes 1{devic 1 Device Univers reL 3-07 e} by ity of (MIRENA) 20 09:20: Intrauteri [place] mcg/24 09 ne route Medical hours (7 once now. Branch yrs) 52 mg IUD levonorgest Yes 1{devic 1 Device Univers reL 3-07 e} by ity of (MIRENA) 20 09:20: Intrauteri [place] mcg/24 09 ne route Medical hours (7 once now. Branch yrs) 52 mg IUD levonorgest Yes 1{devic 1 Device Univers reL 3-07 e} by ity of (MIRENA) 20 09:20: Intrauteri [place] mcg/24 09 ne route Medical hours (7 once now. Branch yrs) 52 mg IUD levonorgest 2022-0 Yes 1{devic 1 Device Univers reL 3-07 e} by ity of (MIRENA) 20 09:20: Intrauteri [place] mcg/24 09 ne route Medical hours (7 once now. Branch yrs) 52 mg IUD levonorgest 2022-0 Yes 1{devic 1 Device Univers reL 3-07 e} by ity of (MIRENA) 20 09:20: Intrauteri [place] mcg/24 09 ne route Medical hours (7 once now. Branch yrs) 52 mg IUD SERTraline 2022-0 Yes [id number] 50mg Take 1 Univers (ZOLOFT) 50 3-07 tablet by ity of mg tablet 00:00: [place] the Medical morning. Branch SUMAtriptan 2022-0 Yes [id number] 25mg Take 1 U nivers (IMITREX) 3-07 tablet by ity o f 25 mg 00:00: mouth as [place] tablet 00 needed for Medical Migraine Branch (daily as needed for migraine headaches) . SERTraline 2022-0 Yes [id number] 50mg Take 1 Univers (ZOLOFT) 50 3-07 tablet by ity of mg tablet 00:00: [place] 00 the Medical morning. Branch SUMAtriptan 2022-0 Yes [id number] 25mg Take 1 U nivers (IMITREX) 3-07 tablet by ity o f 25 mg 00:00: mouth as [place] tablet 00 needed for Medical Migraine Branch (daily as needed for migraine headaches) . SERTraline 3-0 Yes [id number] 50mg Take 1 Univers (ZOLOFT) 50 3-07 tablet by ity of mg tablet 00:00: [place] 00 the Medical morning. Branch SUMAtriptan 3-0 Yes [id number] 25mg Take 1 U nivers (IMITREX) 3-07 tablet by ity o f 25 mg 00:00: mouth as [place] tablet 00 needed for Medical Migraine Branch (daily as needed for migraine headaches) . SERTraline 2023-0 Yes [id number] 50mg Take 1 Univers (ZOLOFT) 50 3-07 tablet by ity of mg tablet 00:00: mouth [place] 00 the Medical morning. Branch SUMAtriptan 2022-0 Yes [id number] 25mg Take 1 U nivers (IMITREX) 3-07 tablet by ity o f 25 mg 00:00: mouth as [place] tablet 00 needed for Medical Migraine Branch (daily as needed for migraine headaches) . SERTraline 2022-0 Yes [id number] 50mg Take 1 Univers (ZOLOFT) 50 3-07 tablet by ity of mg tablet 00:00: mouth [place] the Medical morning. Branch SUMAtriptan 2022-0 Yes [id number] 25mg Take 1 U nivers (IMITREX) 3-07 tablet by ity o f 25 mg 00:00: mouth as [place] tablet 00 needed for Medical Migraine Branch (daily as needed for migraine headaches) . SERTraline 2022-0 Yes [id number] 50mg Take 1 Univers (ZOLOFT) 50 3-07 tablet by ity of mg tablet 00:00: [place] the Medical morning. Branch SUMAtriptan 2022-0 Yes [id number] 25mg Take 1 U nivers (IMITREX) 3-07 tablet by ity o f 25 mg 00:00: mouth as [place] tablet 00 needed for Medical Migraine Branch (daily as needed for migraine headaches) . SUMAtriptan 2022-0 Yes [id number] 25mg Take 1 U nivers (IMITREX) 3-07 tablet by ity o f 25 mg 00:00: mouth as [place] tablet 00 needed for Medical Migraine Branch (daily as needed for migraine headaches) . SUMAtriptan 2022-0 Yes [id number] 25mg Take 1 U nivers (IMITREX) 3-07 tablet by ity o f 25 mg 00:00: mouth as [place] tablet 00 needed for Medical Migraine Branch (daily as needed for migraine headaches) . SUMAtriptan 2022-0 Yes [id number] 25mg Take 1 U nivers (IMITREX) 3-07 tablet by ity o f 25 mg 00:00: mouth as [place] tablet 00 needed for Medical Migraine Branch (daily as needed for migraine headaches) . SUMAtriptan 2022-0 Yes [id number] 25mg Take 1 U nivers (IMITREX) 3-07 tablet by ity o f 25 mg 00:00: mouth as [place] tablet 00 needed for Medical Migraine Branch (daily as needed for migraine headaches) . SERTraline Yes [id number] 50mg Take 1 Univers (ZOLOFT) 50 3-07 tablet by ity of mg tablet 00:00: [place] 00 the Medical morning. Branch SUMAtriptan Yes [id number] 25mg Take 1 U nivers (IMITREX) 3-07 tablet by ity o f 25 mg 00:00: mouth as [place] tablet 00 needed for Medical Migraine Branch (daily as needed for migraine headaches) . SUMAtriptan 2022- No [id number] 25mg Take 1 Univers (IMITREX) 3- 05-12 tablet by ity of 25 mg 00:00: 00:00 mouth as [place] tablet 00 :00 needed for Medical Migraine Branch (daily as needed for migraine headaches) . SUMAtriptan 0 3- No [id number] 25mg Take 1 Univers (IMITREX) 3-12 tablet by ity of 25 mg 00:00: 00:00 mouth as [place] tablet 00 :00 needed for Medical Migraine Branch (daily as needed for migraine headaches) . SERTraline 2022-2022- No [id number] 50mg Take 1 Univers (ZOLOFT) 50 12-14-03 tablet by it y of mg tablet 00:00: 00:00 mouth in [place] 00 :00 the Medical morning. Branch SERTraline 2022- No [id number] 50mg Take 1 Univers (ZOLOFT) 50 12-14-03 tablet by it y of mg tablet 00:00: 00:00 mouth in [place] 00 :00 the Medical morning. Branch No known No No known Unive rs medications 9-20 medication it y of 10:22: s [place] 34 Medical Branch levonorgest Yes 1{devic 1 Device Univers reL 9-20 e} by ity of (MIRENA) 20 09:13: Intrauteri [place] mcg/24 56 ne route Medical hours (7 once now. Branch yrs) 52 mg IUD levonorgest Yes 1{devic 1 Device Univers reL 9-20 e} by ity of (MIRENA) 20 09:13: Intrauteri [place] mcg/24 56 ne route Medical hours (7 once now. Branch yrs) 52 mg IUD estradioL 2 2021-0 Yes [id number] 2mg Take 1 Univers mg tablet 9-20 tablet by ity o f 00:00: mouth in [place] 00 the Medical morning. Branch estradioL 2 2021-0 Yes [id number] 2mg Take 1 Univers mg tablet 9-20 tablet by ity o f 00:00: mouth in [place] 00 the Medical morning. Branch estradioL 2 2021-0 Yes [id number] 2mg Take 1 Univers mg tablet 9-20 tablet by ity o f 00:00: mouth in [place] 00 the Medical morning. Branch estradioL 2 2021-0 Yes [id number] 2mg Take 1 Univers mg tablet 9-20 tablet by ity o f 00:00: mouth in [place] 00 the Medical morning. Branch SERTraline 2021-0 Yes [id number] 50mg Take 1 U nivers 50 mg 9-20 tablet by ity of tablet 00:00: mouth in [place] 00 the Medical morning. Branch estradioL 2 2021-0 Yes [id number] 2mg Take 1 Univers mg tablet 9-20 tablet by ity o f 00:00: mouth in [place] 00 the Medical morning. Branch SERTraline 2021-0 Yes [id number] 50mg Take 1 U nivers 50 mg 9-20 tablet by ity of tablet 00:00: mouth in [place] 00 the Medical morning. Branch estradioL 2 2021-0 Yes [id number] 2mg Take 1 Univers mg tablet 9-20 tablet by ity o f 00:00: mouth in [place] 00 the Medical morning. Branch estradioL 2 2021-0 Yes [id number] 2mg Take 1 Univers mg tablet 9-20 tablet by ity o f 00:00: mouth in [place] 00 the Medical morning. Branch estradioL 2 2021-0 2022- No [id number] 2mg Take 1 Univers mg tablet 9-20 -21 tablet by ity of 00:00: 00:00 mouth in [place] 00 :00 the Medical morning. Branch estradioL 2 2021-0 2022- No [id number] 2mg Take 1 Univers mg tablet 9-20 -21 tablet by ity of 00:00: 00:00 mouth in [place] 00 :00 the Medical morning. Branch SERTraline 2021-0 2022- No [id number] 50mg Take 1 Univers 50 mg 9-20 -07 tablet by ity of tablet 00:00: 00:00 mouth in [place] 00 :00 the Medical morning. Branch SERTraline 2022- No [id number] 50mg Take 1 Univers 50 mg 9-20 03-07 tablet by ity of tablet 00:00: 00:00 mouth in [place] 00 :00 the Medical morning. Branch famotidine Yes TAKE 1 Unive rs 20 mg 9-16 TABLET BY ity of tablet 00:00: [facility] 00 EVERY 12 Medical HOURS FOR Branch 5 DAYS famotidine Yes TAKE 1 Unive rs 20 mg 9-16 TABLET BY ity of tablet 00:00: [facility] 00 EVERY 12 Medical HOURS FOR Branch 5 DAYS famotidine Yes TAKE 1 Unive rs 20 mg 9-16 TABLET BY ity of tablet 00:00: [facility] 00 EVERY 12 Medical HOURS FOR Branch 5 DAYS famotidine Yes TAKE 1 Unive rs 20 mg 9-16 TABLET BY ity of tablet 00:00: [facility] 00 EVERY 12 Medical HOURS FOR Branch 5 DAYS famotidine Yes TAKE 1 Unive rs 20 mg 9-16 TABLET BY ity of tablet 00:00: [facility] 00 EVERY 12 Medical HOURS FOR Branch 5 DAYS famotidine Yes TAKE 1 Unive rs 20 mg 9-16 TABLET BY ity of tablet 00:00: [facility] 00 EVERY 12 Medical HOURS FOR Branch 5 DAYS famotidine Yes TAKE 1 Unive rs 20 mg 9-16 TABLET BY ity of tablet 00:00: [facility] 00 EVERY 12 Medical HOURS FOR Branch 5 DAYS famotidine 0 2022- No TAKE 1 Univ ers 20 mg 9-16 03-21 TABLET BY ity of tablet 00:00: 00:00 [facility] 00 :00 EVERY 12 Medical HOURS FOR Branch 5 DAYS famotidine 2022- No TAKE 1 Univ ers 20 mg 9-16 03-21 TABLET BY ity of tablet 00:00: 00:00 [facility] 00 :00 EVERY 12 Medical HOURS FOR Branch 5 DAYS hydrOXYzine 2021-2021- No TAKE 1 Uni vers 25 mg 9-16 09-20 TABLET BY ity of tablet 00:00: 00:00 [facility] 00 :00 EVERY 6 Medical HOURS Branch NEEDED hydrOXYzine 2021-2021- No TAKE 1 Uni vers 25 mg 9-16 09-20 TABLET BY ity of tablet 00:00: 00:00 MOUTH [place] 00 :00 EVERY 6 Medical HOURS Branch NEEDED levonorgest 2021- No [id number] 1{devi Univers reL 06-17 e} ity of (MIRENA) 21:15: 20:17 [place] 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 1 00 :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 levonorgest 2021- No [id number] 1{devic 1 Device, Univers reL 06-17 e} Intrauteri ity of (MIRENA) 21:15: 20:17 ne, ONCE, [place] IUD 1 00 :00 1 dose, On Employee Relations Director [facility] 06/17/22 Branch at 1615, Routine levonorgest 2021- No [id number] 1{devi Univers reL 06-17 e} ity of (MIRENA) 21:15: 20:17 [place] 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 Bran h 2021- No [id number] 1{tbl} Take 1 Univers vitamin 05-28 109 tablet by ity of w/FA 00:00: 00:00 mouth in [place] (THRIVITE 00 :00 the Medical RX) tablet morning. [facility] h miSOPROStoL 2021- No [id number] 200ug Take 1 Univers 200 mcg 05-27 tablet by ity of tablet 00:00: 00:00 mouth in [place] 00 :00 the [facility] morning Branch and 1 tablet in the evening. Take the night before and the morning of the procedure. hydrocortis No [id number] 25mg Insert 1 [facility] one 25 mg 8-08 Suppositor ity of suppository 00:00: 00:00 y into [place] 00 :00 rectum in [facility] morning and 1 Suppositor y in the evening. polyethylen 2021- No [id number] 1{packe Take 1 Univers e glycol 05-27 t} Packet by ity o f 3350 00:00: 00:00 mouth [place] (MIRALAX) 00 :00 every 24 Medica l 17 gram (twenty-fo Branch powder ur) hours. miSOPROStoL 2021- No [id number] 200ug Take 1 Univers 200 mcg 05-27 tablet by ity of tablet 00:00: 00:00 mouth in [place] 00 :00 the [facility] morning Branch and 1 tablet in the evening. Take the night before and the morning of the procedure. hydrocortis No [id number] 25mg Insert 1 [facility] one 25 mg 05-27 Suppositor ity of suppository 00:00: 00:00 y into [place] 00 :00 rectum in [facility] morning and 1 Suppositor y in the evening. polyethylen No [id number] 1{packe Take 1 Univers e glycol 05-27 t} Packet by ity o f 3350 00:00: 00:00 mouth [place] (MIRALAX) 00 :00 every 24 Medica l 17 gram (twenty-fo Branch powder ur) hours. docusate 2021- No [id number] 200mg Take 2 Univers 100 mg 05-08 109 capsules ity of capsule 00:00: 00:00 by mouth [place] 00 :00 once daily Medical as needed Branch for Constipati on. docusate No [id number] 200mg Take 2 Univers 100 mg 05-08 109 capsules ity of capsule 00:00: 00:00 by mouth [place] 00 :00 once daily Medical as needed Branch for Constipati on. Immunizations Ordered Immunization Filled Date Status Comments Sour ce Name Immunization Name TD 2022-02-18 Completed University of 00:00:[address] [facility] TDAP 2022-02-18 Completed University of 00:00:[address] [facility] TDAP 2022-02-18 Completed University of 00:00:[address] [facility] TDAP 2022-02-18 Completed University of 00:00:[address] [facility] TDAP 2022-02-18 Completed University of 00:00:[address] [facility] TDAP 2022-02-18 Completed University of 00:00:[address] [facility] TDAP 2022-02-18 Completed University of 00:00:[address] [facility] TDAP 2022-02-18 Completed University of 00:00:[address] [facility] TDAP 2022-02-18 Completed University of 00:00:[address] [facility] TDAP 2022-02-18 Completed University of 00:00:[address] [facility] TDAP 2022-02-18 Completed University of 00:00:[address] [facility] TDAP 2022-02-18 Completed University of 00:00:[address] [facility] TDAP 2022-02-18 Completed University of 00:00:[address] [facility] TDAP 2022-02-18 Completed University of 00:00:[address] [facility] TDAP 2022-02-18 Completed University of 00:00:[address] [facility] TDAP 2022-02-18 Completed University of 00:00:[address] [facility] TDAP 2022-02-18 Completed University of 00:00:[address] [facility] TDAP 2022-02-18 Completed University of 00:00:[address] [facility] TDAP 2022-02-18 Completed University of 00:00:[address] [facility] SARS-COV-2 COVID-19 2021-10-26 Completed Unive rsity of PFIZER VACCINE 00:00:00 [facility] SARS-COV-2 COVID-19 2021-10-26 Completed Unive rsity of PFIZER VACCINE 00:00:00 [facility] SARS-COV-2 COVID-19 2021-10-26 Completed Unive rsity of PFIZER VACCINE 00:00:00 [facility] SARS-COV-2 COVID-19 2021-10-26 Completed Unive rsity of PFIZER VACCINE 00:00:00 [facility] SARS-COV-2 COVID-19 2021-10-26 Completed Unive rsity of PFIZER VACCINE 00:00:00 [facility] SARS-COV-2 COVID-19 2021-10-26 Completed Unive rsity of PFIZER VACCINE 00:00:00 [facility] SARS-COV-2 COVID-19 2021-10-26 Completed Unive rsity of PFIZER VACCINE 00:00:00 [facility] SARS-COV-2 COVID-19 2021-10-26 Completed Unive rsity of PFIZER VACCINE 00:00:00 [facility] SARS-COV-2 COVID-19 2021-10-26 Completed Unive rsity of PFIZER VACCINE 00:00:00 [facility] SARS-COV-2 COVID-19 2021-10-26 Completed Unive rsity of PFIZER VACCINE 00:00:00 [facility] SARS-COV-2 COVID-19 2021-10-26 Completed Unive rsity of PFIZER VACCINE 00:00:00 [facility] SARS-COV-2 COVID-19 2021-10-26 Completed Unive rsity of PFIZER VACCINE 00:00:00 [facility] SARS-COV-2 COVID-19 2021-10-26 Completed Unive rsity of PFIZER VACCINE 00:00:00 [facility] SARS-COV-2 COVID-19 2021-10-26 Completed Unive rsity of PFIZER VACCINE 00:00:00 [facility] SARS-COV-2 COVID-19 2021-10-26 Completed Unive rsity of PFIZER VACCINE 00:00:00 [facility] SARS-COV-2 COVID-19 2021-10-26 Completed Unive rsity of PFIZER VACCINE 00:00:00 [facility] SARS-COV-2 COVID-19 2021-10-26 Completed Unive rsity of PFIZER VACCINE 00:00:00 [facility] SARS-COV-2 COVID-19 2021-10-26 Completed Unive rsity of PFIZER VACCINE 00:00:00 [facility] SARS-COV-2 COVID-19 2021-10-26 Completed Unive rsity of PFIZER VACCINE 00:00:00 [facility] SARS-COV-2 COVID-19 2021-06-03 Completed Unive rsity of PFIZER VACCINE 00:00:00 [facility] SARS-COV-2 COVID-19 2021-06-03 Completed Unive rsity of PFIZER VACCINE 00:00:00 [facility] SARS-COV-2 COVID-19 2021-06-03 Completed Unive rsity of PFIZER VACCINE 00:00:00 [facility] SARS-COV-2 COVID-19 2021-06-03 Completed Unive rsity of PFIZER VACCINE 00:00:00 [facility] SARS-COV-2 COVID-19 2021-06-03 Completed Unive rsity of PFIZER VACCINE 00:00:00 [facility] SARS-COV-2 COVID-19 2021-06-03 Completed Unive rsity of PFIZER VACCINE 00:00:00 [facility] SARS-COV-2 COVID-19 2021-06-03 Completed Unive rsity of PFIZER VACCINE 00:00:00 [facility] SARS-COV-2 COVID-19 2021-06-03 Completed Unive rsity of PFIZER VACCINE 00:00:00 [facility] SARS-COV-2 COVID-19 2021-06-03 Completed Unive rsity of PFIZER VACCINE 00:00:00 [facility] SARS-COV-2 COVID-19 2021-06-03 Completed Unive rsity of PFIZER VACCINE 00:00:00 [facility] SARS-COV-2 COVID-19 2021-06-03 Completed Unive rsity of PFIZER VACCINE 00:00:00 [facility] SARS-COV-2 COVID-19 2021-06-03 Completed Unive rsity of PFIZER VACCINE 00:00:00 [facility] SARS-COV-2 COVID-19 2021-06-03 Completed Unive rsity of PFIZER VACCINE 00:00:00 [facility] SARS-COV-2 COVID-19 2021-06-03 Completed Unive rsity of PFIZER VACCINE 00:00:00 [facility] SARS-COV-2 COVID-19 2021-06-03 Completed Unive rsity of PFIZER VACCINE 00:00:00 [facility] SARS-COV-2 COVID-19 2021-06-03 Completed Unive rsity of PFIZER VACCINE 00:00:00 [facility] SARS-COV-2 COVID-19 2021-06-03 Completed Unive rsity of PFIZER VACCINE 00:00:00 [facility] SARS-COV-2 COVID-19 2021-06-03 Completed Unive rsity of PFIZER VACCINE 00:00:00 [facility] SARS-COV-2 COVID-19 2021-06-03 Completed Unive rsity of PFIZER VACCINE 00:00:00 [facility] Meningococcal 2016-05-20 Completed University of Polysaccharide 00:00:00 [place] [facility] lup[facility] (groups A, C, Y and Branc h W-135) conjugate vaccine (MCV4P) Meningococcal 2016-05-20 Completed University of Polysaccharide 00:00:00 [place] [facility] (groups A, C, Y and Branc h W-135) conjugate vaccine (MCV4P) Meningococcal 2016-05-20 Completed University of Polysaccharide 00:00:00 [place] [facility] (groups A, C, Y and Branc h W-135) conjugate vaccine (MCV4P) Meningococcal 2016-05-20 Completed University of Polysaccharide 00:00:00 [place] [facility] (groups A, C, Y and Branc h W-135) conjugate vaccine (MCV4P) Meningococcal 2016-05-20 Completed University of Polysaccharide 00:00:00 [place] [facility] (groups A, C, Y and Branc h W-135) conjugate vaccine (MCV4P) Meningococcal 2016-05-20 Completed University of Polysaccharide 00:00:00 [place] [facility] (groups A, C, Y and Branc h W-135) conjugate vaccine (MCV4P) Meningococcal 2016-05-20 Completed University of Polysaccharide 00:00:00 [place] [facility] (groups A, C, Y and Branc h W-135) conjugate vaccine (MCV4P) Meningococcal 2016-05-20 Completed University of Polysaccharide 00:00:00 [place] [facility] (groups A, C, Y and Branc h W-135) conjugate vaccine (MCV4P) Meningococcal 2016-05-20 Completed University of Polysaccharide 00:00:00 [place] [facility] (groups A, C, Y and Branc h W-135) conjugate vaccine (MCV4P) Meningococcal 2016-05-20 Completed University of Polysaccharide 00:00:00 [place] [facility] lup[facility] (groups A, C, Y and Branc h W-135) conjugate vaccine (MCV4P) Meningococcal 2016-05-20 Completed University of Polysaccharide 00:00:00 [place] [facility] (groups A, C, Y and Branc h W-135) conjugate vaccine (MCV4P) Meningococcal 2016-05-20 Completed University of Polysaccharide 00:00:00 [place] [facility] lupis (groups A, C, Y and Branc h W-135) conjugate vaccine (MCV4P) Meningococcal 2016-05-20 Completed University of Polysaccharide 00:00:00 [place] [facility] lup[facility] (groups A, C, Y and Branc h W-135) conjugate vaccine (MCV4P) Influenza Virus 2015-07-17 Completed Universit y of Vaccine Quad IM 00:00:00 [place] [facility] ical Multi-dose 6+ MO Branch Influenza Virus 2015-07-17 Completed Universit y of Vaccine Quad IM 00:00:00 [place] [facility] ical Multi-dose 6+ MO Branch Influenza Virus 2015-07-17 Completed Universit y of Vaccine Quad IM 00:00:00 [place] [facility] Multi-dose 6+ MO Branch Influenza Virus 2015-07-17 Completed Universit y of Vaccine Quad IM 00:00:00 [place] [facility] Multi-dose 6+ MO Branch Influenza Virus 2015-07-17 Completed Universit y of Vaccine Quad IM 00:00:00 [place] [facility] Multi-dose 6+ MO Branch Influenza Virus 2015-07-17 Completed Universit y of Vaccine Quad IM 00:00:00 [place] [facility] Multi-dose 6+ MO Branch Influenza Virus 2015-07-17 Completed Universit y of Vaccine Quad IM 00:00:00 [place] [facility] Multi-dose 6+ MO Branch Influenza Virus 2015-07-17 Completed Universit y of Vaccine Quad IM 00:00:00 [place] [facility] Multi-dose 6+ MO Branch Influenza Virus 2015-07-17 Completed Universit y of Vaccine Quad IM 00:00:00 [place] [facility] Multi-dose 6+ MO Branch Influenza Virus 2015-07-17 Completed Universit y of Vaccine Quad IM 00:00:00 [place] [facility] Multi-dose 6+ MO Branch Influenza Virus 2015-07-17 Completed Universit y of Vaccine Quad IM 00:00:00 [place] [facility] Multi-dose 6+ MO Branch Influenza Virus 2015-07-17 Completed Universit y of Vaccine Quad IM 00:00:00 [place] [facility] ical Multi-dose 6+ MO Branch Influenza Virus 2015-07-17 Completed Universit y of Vaccine Quad IM 00:00:00 [place] [facility] ical Multi-dose 6+ MO Branch Flu Trivalent 2013-09-19 Completed University of 00:00:[address] [facility] Flu Trivalent 2013-09-19 Completed University of 00:00:[address] [facility] Flu Trivalent 2013-09-19 Completed University of 00:00:[address] [facility] Flu Trivalent 2013-09-19 Completed University of 00:00:[address] [facility] Flu Trivalent 2013-09-19 Completed University of 00:00:[address] [facility] Flu Trivalent 2013-09-19 Completed University of 00:00:[address] [facility] Flu Trivalent 2013-09-19 Completed University of 00:00:[address] [facility] Flu Trivalent 2013-09-19 Completed University of 00:00:[address] [facility] Flu Trivalent 2013-09-19 Completed University of 00:00:[address] [facility] Flu Trivalent 2013-09-19 Completed University of 00:00:[address] [facility] Flu Trivalent 2013-09-19 Completed University of 00:00:[address] [facility] Flu Trivalent 2013-09-19 Completed University of 00:00:[address] [facility] Flu Trivalent 2013-09-19 Completed University of 00:00:[address] [facility] Meningococcal 2011-09-16 Completed University of Polysaccharide 00:00:00 [place] [facility] lup[facility] (groups A, C, Y and Branc h W-135) conjugate vaccine (MCV4P) TDAP 2011-09-16 Completed University of 00:00:[address] [facility] Meningococcal 2011-09-16 Completed University of Polysaccharide 00:00:00 [place] [facility] lup[facility] (groups A, C, Y and Branc h W-135) conjugate vaccine (MCV4P) TDAP 2011-09-16 Completed University of 00:00:[address] [facility] Meningococcal 2011-09-16 Completed University of Polysaccharide 00:00:00 [place] [facility] (groups A, C, Y and Branc h W-135) conjugate vaccine (MCV4P) TDAP 2011-09-16 Completed University of 00:00:[address] [facility] Meningococcal 2011-09-16 Completed University of Polysaccharide 00:00:00 [place] [facility] lup[facility] (groups A, C, Y and Branc h W-135) conjugate vaccine (MCV4P) TDAP 2011-09-16 Completed University of 00:00:[address] [facility] Meningococcal 2011-09-16 Completed University of Polysaccharide 00:00:00 [place] [facility] (groups A, C, Y and Branc h W-135) conjugate vaccine (MCV4P) TDAP 2011-09-16 Completed University of 00:00:[address] [facility] Meningococcal 2011-09-16 Completed University of Polysaccharide 00:00:00 [place] [facility] (groups A, C, Y and Branc h W-135) conjugate vaccine (MCV4P) TDAP 2011-09-16 Completed University of 00:00:[address] [facility] Meningococcal 2011-09-16 Completed University of Polysaccharide 00:00:00 [place] [facility] (groups A, C, Y and Branc h W-135) conjugate vaccine (MCV4P) TDAP 2011-09-16 Completed University of 00:00:[address] [facility] Meningococcal 2011-09-16 Completed University of Polysaccharide 00:00:00 [place] [facility] (groups A, C, Y and Branc h W-135) conjugate vaccine (MCV4P) TDAP 2011-09-16 Completed University of 00:00:[address] [facility] Meningococcal 2011-09-16 Completed University of Polysaccharide 00:00:00 [place] [facility] (groups A, C, Y and Branc h W-135) conjugate vaccine (MCV4P) TDAP 2011-09-16 Completed University of 00:00:[address] [facility] Meningococcal 2011-09-16 Completed University of Polysaccharide 00:00:00 [place] [facility] (groups A, C, Y and Branc h W-135) conjugate vaccine (MCV4P) TDAP 2011-09-16 Completed University of 00:00:[address] [facility] Meningococcal 2011-09-16 Completed University of Polysaccharide 00:00:00 [place] [facility] (groups A, C, Y and Branc h W-135) conjugate vaccine (MCV4P) TDAP 2011-09-16 Completed University of 00:00:[address] [facility] Meningococcal 2011-09-16 Completed University of Polysaccharide 00:00:00 [place] [facility] (groups A, C, Y and Branc h W-135) conjugate vaccine (MCV4P) TDAP 2011-09-16 Completed University of 00:00:[address] [facility] Meningococcal 2011-09-16 Completed University of Polysaccharide 00:00:00 [place] [facility] (groups A, C, Y and Branc h W-135) conjugate vaccine (MCV4P) TDAP 2011-09-16 Completed University of 00:00:[address] [facility] HEPATITIS A 2007-06-02 Completed University of 00:00:[address] [facility] HEPATITIS A 2007-06-02 Completed University of 00:00:[address] [facility] HEPATITIS A 2007-06-02 Completed University of 00:00:[address] [facility] HEPATITIS A 2007-06-02 Completed University of 00:00:[address] [facility] HEPATITIS A 2007-06-02 Completed University of 00:00:[address] [facility] HEPATITIS A 2007-06-02 Completed University of 00:00:[address] [facility] HEPATITIS A 2007-06-02 Completed University of 00:00:[address] [facility] HEPATITIS A 2007-06-02 Completed University of 00:00:[address] [facility] HEPATITIS A 2007-06-02 Completed University of 00:00:[address] [facility] HEPATITIS A 2007-06-02 Completed University of 00:00:[address] [facility] HEPATITIS A 2007-06-02 Completed University of 00:00:[address] [facility] HEPATITIS A 2007-06-02 Completed University of 00:00:[address] [facility] HEPATITIS A 2007-06-02 Completed University of 00:00:[address] [facility] Varicella 2007-05-25 Completed University of (varivax)(chicken 00:00:00 [place] [facility] pox) Branch Varicella 2007-05-25 Completed University of (varivax)(chicken 00:00:00 [place] [facility] pox) Branch Varicella 2007-05-25 Completed University of (varivax)(chicken 00:00:00 [place] [facility] pox) Branch Varicella 2007-05-25 Completed University of (varivax)(chicken 00:00:00 [place] [facility] pox) Branch Varicella 2007-05-25 Completed University of (varivax)(chicken 00:00:00 [place] [facility] pox) Branch Varicella 2007-05-25 Completed University of (varivax)(chicken 00:00:00 [place] [facility] pox) Branch Varicella 2007-05-25 Completed University of (varivax)(chicken 00:00:00 [place] [facility] pox) Branch Varicella 2007-05-25 Completed University of (varivax)(chicken 00:00:00 [place] [facility] pox) Branch Varicella 2007-05-25 Completed University of (varivax)(chicken 00:00:00 [place] [facility] pox) Branch Varicella 2007-05-25 Completed University of (varivax)(chicken 00:00:00 [place] edical pox) Branch Varicella 2007-05-25 Completed University of (varivax)(chicken 00:00:00 [place] ed[facility] pox) Branch Varicella 2007-05-25 Completed University of (varivax)(chicken 00:00:00 [place] edical pox) Branch Varicella 2007-05-25 Completed University of (varivax)(chicken 00:00:00 [facility] edical pox) Branch HEPATITIS A 2006-07-14 Completed University of 00:00:[address] [facility] HEPATITIS A 2006-07-14 Completed University of 00:00:[address] [facility] HEPATITIS A 2006-07-14 Completed University of 00:00:[address] [facility] HEPATITIS A 2006-07-14 Completed University of 00:00:[address] [facility] HEPATITIS A 2006-07-14 Completed University of 00:00:[address] [facility] HEPATITIS A 2006-07-14 Completed University of 00:00:[address] [facility] HEPATITIS A 2006-07-14 Completed University of 00:00:[address] [facility] HEPATITIS A 2006-07-14 Completed University of 00:00:[address] [facility] HEPATITIS A 2006-07-14 Completed University of 00:00:[address] [facility] HEPATITIS A 2006-07-14 Completed University of 00:00:[address] [facility] HEPATITIS A 2006-07-14 Completed University of 00:00:[address] [facility] HEPATITIS A 2006-07-14 Completed University of 00:00:[address] [facility] HEPATITIS A 2006-07-14 Completed University of 00:00:[address] [facility] Flu Trivalent 2005-09-16 Completed University of 00:00:[address] [facility] Flu Trivalent 2005-09-16 Completed University of 00:00:[address] [facility] Flu Trivalent 2005-09-16 Completed University of 00:00:[address] [facility] Flu Trivalent 2005-09-16 Completed University of 00:00:[address] [facility] Flu Trivalent 2005-09-16 Completed University of 00:00:[address] [facility] Flu Trivalent 2005-09-16 Completed University of 00:00:[address] [facility] Flu Trivalent 2005-09-16 Completed University of 00:00:[address] [facility] Flu Trivalent 2005-09-16 Completed University of 00:00:[address] [facility] Flu Trivalent 2005-09-16 Completed University of 00:00:[address] [facility] Flu Trivalent 2005-09-16 Completed University of 00:00:[address] [facility] Flu Trivalent 2005-09-16 Completed University of 00:00:[address] [facility] Flu Trivalent 2005-09-16 Completed University of 00:00:[address] [facility] Flu Trivalent 2005-09-16 Completed University of 00:00:00 [facility] MMR 2003-10-29 Completed University of 00:00:00 [facility] MMR 2003-10-29 Completed University of 00:00:00 [facility] MMR 2003-10-29 Completed University of 00:00:00 [facility] MMR 2003-10-29 Completed University of 00:00:00 [facility] MMR 2003-10-29 Completed University of 00:00:00 [facility] MMR 2003-10-29 Completed University of 00:00:00 [facility] MMR 2003-10-29 Completed University of 00:00:00 [facility] MMR 2003-10-29 Completed University of 00:00:00 [facility] MMR 2003-10-29 Completed University of 00:00:00 [facility] MMR 2003-10-29 Completed University of 00:00:00 [facility] MMR 2003-10-29 Completed University of 00:00:00 [facility] MMR 2003-10-29 Completed University of 00:00:00 [facility] MMR 2003-10-29 Completed University of 00:00:00 [facility] MMR 2003-10-11 Completed University of 00:00:00 [facility] IPV 2003-10-11 Completed University of 00:00:00 [facility] DTP 2003-10-11 Completed University of 00:00:00 [facility] MMR 2003-10-11 Completed University of 00:00:00 [place] [facility] IPV 2003-10-11 Completed University of 00:00:00 [facility] DTP 2003-10-11 Completed University of 00:00:00 [place] [facility] MMR 2003-10-11 Completed University of 00:00:00 [place] [facility] IPV 2003-10-11 Completed University of 00:00:00 [facility] DTP 2003-10-11 Completed University of 00:00:00 [place] [facility] MMR 2003-10-11 Completed University of 00:00:00 [place] [facility] IPV 2003-10-11 Completed University of 00:00:00 [place] [facility] DTP 2003-10-11 Completed University of 00:00:00 [place] [facility] MMR 2003-10-11 Completed University of 00:00:00 [place] [facility] IPV 2003-10-11 Completed University of 00:00:00 [place] [facility] DTP 2003-10-11 Completed University of 00:00:00 [place] [facility] MMR 2003-10-11 Completed University of 00:00:00 [place] [facility] IPV 2003-10-11 Completed University of 00:00:00 [place] [facility] DTP 2003-10-11 Completed University of 00:00:00 [place] [facility] MMR 2003-10-11 Completed University of 00:00:00 [place] [facility] IPV 2003-10-11 Completed University of 00:00:00 [place] [facility] DTP 2003-10-11 Completed [facility] 00:00:00 [facility] MMR 2003-10-11 Completed [facility] 00:00:00 [facility] IPV 2003-10-11 Completed [facility] 00:00:00 [facility] DTP 2003-10-11 Completed [facility] 00:00:00 [facility] MMR 2003-10-11 Completed [facility] 00:00:00 [facility] IPV 2003-10-11 Completed [facility] 00:00:00 [facility] DTP 2003-10-11 Completed [facility] 00:00:00 [facility] MMR 2003-10-11 Completed [facility] 00:00:00 [facility] IPV 2003-10-11 Completed [facility] 00:00:00 [facility] DTP 2003-10-11 Completed [facility] 00:00:00 [facility] MMR 2003-10-11 Completed [facility] 00:00:00 [facility] IPV 2003-10-11 Completed [facility] 00:00:00 [facility] DTP 2003-10-11 Completed [facility] 00:00:00 [facility] MMR 2003-10-11 Completed [facility] 00:00:00 [facility] IPV 2003-10-11 Completed [facility] 00:00:00 [facility] DTP 2003-10-11 Completed [facility] 00:00:00 [facility] MMR 2003-10-11 Completed [facility] 00:00:00 [facility] IPV 2003-10-11 Completed [facility] 00:00:00 [facility] DTP 2003-10-11 Completed [facility] 00:00:[address] [facility] HIB 4 Dose Schedule 2000-10-12 Completed Unive rsity of 00:00:[address] [facility] MMR 2000-10-12 Completed [facility] 00:00:00 [facility] IPV 2000-10-12 Completed [facility] 00:00:00 [facility] Varicella 2000-10-12 Completed [facility] (varivax)(chicken 00:00:00 [facility]ox[facility] HIB 4 Dose Schedule 2000-10-12 Completed [facility]ive rsity of 00:00:00 [facility] MMR 2000-10-12 Completed [facility] 00:00:00 [facility] IPV 2000-10-12 Completed [facility] 00:00:00 [facility] Varicella 2000-10-12 Completed [facility] (varivax)(chicken 00:00:00 [facility] HIB 4 Dose Schedule 2000-10-12 Completed Unive rsity of 00:00:[address] [facility] MMR 2000-10-12 Completed [facility] 00:00:[address] [facility] IPV 2000-10-12 Completed [facility] 00:00:[address] [facility] Varicella 2000-10-12 Completed [facility] (varivax)(chicken 00:00:00 [facility] HIB 4 Dose Schedule 2000-10-12 Completed Unive rsity of 00:00:[address] [facility] MMR 2000-10-12 Completed [facility] 00:00:[address] [facility] IPV 2000-10-12 Completed [facility] 00:00:[address] [facility] Varicella 2000-10-12 Completed [facility] (varivax)(chicken 00:00:00 [facility] HIB 4 Dose Schedule 2000-10-12 Completed [facility]ive rsity of 00:00:00 [facility] MMR 2000-10-12 Completed [facility] 00:00:00 [facility] IPV 2000-10-12 Completed [facility] 00:00:00 [facility] Varicella 2000-10-12 Completed [facility] (varivax)(chicken 00:00:00 [facility] HIB 4 Dose Schedule 2000-10-12 Completed [facility] 00:00:00 [facility] MMR 2000-10-12 Completed [facility] 00:00:00 [facility] IPV 2000-10-12 Completed [facility] 00:00:00 [facility] Varicella 2000-10-12 Completed [facility] (varivax)(chicken 00:00:00 [facility] HIB 4 Dose Schedule 2000-10-12 Completed [facility]ive rsity of 00:00:00 [facility] MMR 2000-10-12 Completed [facility] 00:00:00 [facility] IPV 2000-10-12 Completed [facility] 00:00:00 [facility] Varicella 2000-10-12 Completed [facility] (varivax)(chicken 00:00:00 [facility] HIB 4 Dose Schedule 2000-10-12 Completed [facility]ive rsity of 00:00:00 [facility] MMR 2000-10-12 Completed [facility] 00:00:00 [facility] IPV 2000-10-12 Completed [facility] 00:00:00 [facility] Varicella 2000-10-12 Completed [facility] (varivax)(chicken 00:00:00 [facility] HIB 4 Dose Schedule 2000-10-12 Completed Unive rsity of 00:00:[address] [facility] MMR 2000-10-12 Completed [facility] 00:00:00 [facility] IPV 2000-10-12 Completed [facility] 00:00:00 [facility] Varicella 2000-10-12 Completed [facility] (varivax)(chicken 00:00:00 [facility] HIB 4 Dose Schedule 2000-10-12 Completed [facility] 00:00:00 [facility] MMR 2000-10-12 Completed [facility] 00:00:[address] [facility] IPV 2000-10-12 Completed [facility] 00:00:00 [facility] Varicella 2000-10-12 Completed [facility] (varivax)(chicken 00:00:00 [facility] HIB 4 Dose Schedule 2000-10-12 Completed [facility]ive rsity of 00:00:00 [facility] MMR 2000-10-12 Completed [facility] 00:00:00 [facility] IPV 2000-10-12 Completed [facility] 00:00:00 [facility] Varicella 2000-10-12 Completed [facility] (varivax)(chicken 00:00:00 [facility] HIB 4 Dose Schedule 2000-10-12 Completed [facility]ive rsity of 00:00:00 [facility] MMR 2000-10-12 Completed [facility] 00:00:00 [facility] IPV 2000-10-12 Completed [facility] 00:00:00 [facility] Varicella 2000-10-12 Completed [facility] (varivax)(chicken 00:00:00 [facility] HIB 4 Dose Schedule 2000-10-12 Completed [facility]ive rsity of 00:00:00 [facility] MMR 2000-10-12 Completed [facility] 00:00:[address] [facility] IPV 2000-10-12 Completed [facility] 00:00:[address] [facility] Varicella 2000-10-12 Completed [facility] (varivax)(chicken 00:00:00 [facility] Hep B, Adol or Pedi 2000-03-08 Completed Unive rsity of Dosage 00:00:[address] [facility] HIB 4 Dose Schedule 2000-03-08 Completed Unive rsity of 00:00:[address] [facility] IPV 2000-03-08 Completed [facility] 00:00:[address] [facility] Hep B, Adol or Pedi 2000-03-08 Completed Unive rsity of Dosage 00:00:[address] [facility] HIB 4 Dose Schedule 2000-03-08 Completed Unive rsity of 00:00:[address] [facility] IPV 2000-03-08 Completed [facility] 00:00:00 [facility] Hep B, Adol or Pedi 2000-03-08 Completed Unive rsity of Dosage 00:00:[address] [facility] HIB 4 Dose Schedule 2000-03-08 Completed Unive rsity of 00:00:[address] [facility] IPV 2000-03-08 Completed [facility] 00:00:[address] [facility] Hep B, Adol or Pedi 2000-03-08 Completed Unive rsity of Dosage 00:00:[address] [facility] HIB 4 Dose Schedule 2000-03-08 Completed Unive rsity of 00:00:[address] [facility] IPV 2000-03-08 Completed [facility] 00:00:00 [facility] Hep B, Adol or Pedi 2000-03-08 Completed Unive rsity of Dosage 00:00:[address] [facility] HIB 4 Dose Schedule 2000-03-08 Completed Unive rsity of 00:00:[address] [facility] IPV 2000-03-08 Completed [facility] 00:00:[address] [facility] Hep B, Adol or Pedi 2000-03-08 Completed Unive rsity of Dosage 00:00:[address] [facility] HIB 4 Dose Schedule 2000-03-08 Completed [facility]ive rsity of 00:00:00 [facility] IPV 2000-03-08 Completed [facility] 00:00:00 [facility] Hep B, Adol or Pedi 2000-03-08 Completed Unive rsity of Dosage 00:00:00 [facility] HIB 4 Dose Schedule 2000-03-08 Completed Unive rsity of 00:00:00 [facility] IPV 2000-03-08 Completed [facility] 00:00:00 [facility] Hep B, Adol or Pedi 2000-03-08 Completed [facility]ive rsity of Dosage 00:00:00 [facility] HIB 4 Dose Schedule 2000-03-08 Completed Unive rsity of 00:00:00 [facility] IPV 2000-03-08 Completed [facility] 00:00:00 [facility] Hep B, Adol or Pedi 2000-03-08 Completed [facility]ive rsity of Dosage 00:00:00 [facility] HIB 4 Dose Schedule 2000-03-08 Completed Unive rsity of 00:00:00 [facility] IPV 2000-03-08 Completed [facility] 00:00:00 [facility] Hep B, Adol or Pedi 2000-03-08 Completed Unive rsity of Dosage 00:00:00 [facility] HIB 4 Dose Schedule 2000-03-08 Completed Unive rsity of 00:00:00 [facility] IPV 2000-03-08 Completed [facility] 00:00:00 [facility] Hep B, Adol or Pedi 2000-03-08 Completed Unive rsity of Dosage 00:00:00 [facility] HIB 4 Dose Schedule 2000-03-08 Completed Unive rsity of 00:00:00 [facility] IPV 2000-03-08 Completed [facility] 00:00:00 [facility] Hep B, Adol or Pedi 2000-03-08 Completed Unive rsity of Dosage 00:00:00 [facility] HIB 4 Dose Schedule 2000-03-08 Completed Unive rsity of 00:00:00 [facility] IPV 2000-03-08 Completed [facility] 00:00:00 [facility] Hep B, Adol or Pedi 2000-03-08 Completed Unive rsity of Dosage 00:00:00 [facility] HIB 4 Dose Schedule 2000-03-08 Completed Unive rsity of 00:00:00 [facility] IPV 2000-03-08 Completed [facility] 00:00:00 [facility] DTaP, Unspecified 1999 Completed Univers ity of Formulation 00:00:[address] [facility] HIB 4 Dose Schedule 1999 Completed Unive rsity of 00:00:[address] [facility] IPV 1999 Completed [facility] 00:00:[address] [facility] DTaP, Unspecified 1999 Completed Univers ity of Formulation 00:00:[address] [facility] HIB 4 Dose Schedule 1999 Completed Unive rsity of 00:00:[address] [facility] IPV 1999 Completed [facility] 00:00:[address] [facility] DTaP, Unspecified 1999 Completed Univers ity of Formulation 00:00:[address] [facility] HIB 4 Dose Schedule 1999 Completed Unive rsity of 00:00:[address] [facility] IPV 1999 Completed [facility] 00:00:[address] [facility] DTaP, Unspecified 1999 Completed Univers ity of Formulation 00:00:[address] [facility] HIB 4 Dose Schedule 1999 Completed Unive rsity of 00:00:[address] [facility] IPV 1999 Completed [facility] 00:00:[address] [facility] DTaP, Unspecified 1999 Completed Univers ity of Formulation 00:00:[address] [facility] HIB 4 Dose Schedule 1999 Completed Unive rsity of 00:00:[address] [facility] IPV 1999 Completed [facility] 00:00:[address] [facility] DTaP, Unspecified 1999 Completed Univers ity of Formulation 00:00:[address] [facility] HIB 4 Dose Schedule 1999 Completed [facility]ive [facility]ity of 00:00:00 [facility] IPV 1999 Completed [facility] 00:00:[address] [facility] DTaP, Unspecified 1999 Completed Univers ity of Formulation 00:00:[address] [facility] HIB 4 Dose Schedule 1999 Completed Unive rsity of 00:00:[address] [facility] IPV 1999 Completed [facility] 00:00:[address] [facility] DTaP, Unspecified 1999 Completed Univers ity of Formulation 00:00:[address] [facility] HIB 4 Dose Schedule 1999 Completed Unive rsity of 00:00:00 [facility] IPV 1999 Completed [facility] 00:00:[address] [facility] DTaP, Unspecified 1999 Completed [facility] ity [facility] Formulation 00:00:[address] [facility] HIB 4 Dose Schedule 1999 Completed Unive rsity of 00:00:[address] [facility] IPV 1999 Completed [facility] 00:00:[address] [facility] DTaP, Unspecified 1999 Completed [facility] it[facility] Formulation 00:00:[address] [facility] HIB 4 Dose Schedule 1999 Completed [facility]ive rsity of 00:00:00 [facility] IPV 1999 Completed [facility] 00:00:00 [facility] DTaP, Unspecified 1999 Completed [facility] it[facility] Formulation 00:00:[address] [facility] HIB 4 Dose Schedule 1999 Completed Unive rsity of 00:00:[address] [facility] IPV 1999 Completed [facility] 00:00:[address] [facility] DTaP, Unspecified 1999 Completed [facility] ity [facility] Formulation 00:00:[address] [facility] HIB 4 Dose Schedule 1999 Completed Unive rsity of 00:00:[address] [facility] IPV 1999 Completed [facility] 00:00:00 [facility] DTaP, Unspecified 1999 Completed [facility] Formulation 00:00:[address] [facility] HIB 4 Dose Schedule 1999 Completed Unive rsity of 00:00:[address] [facility] IPV 1999 Completed [facility] 00:00:00 [facility] DTaP, Unspecified 1999 Completed [facility] Formulation 00:00:[address] [facility] Hep B, Adol or Pedi 1999 Completed Unive rsity of Dosage 00:00:[address] [facility] HIB 4 Dose Schedule 1999 Completed Unive rsity of 00:00:00 [facility] IPV 1999 Completed [facility] 00:00:00 [facility] DTaP, Unspecified 1999 Completed [facility] Formulation 00:00:[address] [facility] Hep B, Adol or Pedi 1999 Completed Unive rsity of Dosage 00:00:[address] [facility] HIB 4 Dose Schedule 1999 Completed Unive rsity of 00:00:[address] [facility] IPV 1999 Completed [facility] 00:00:00 [facility] DTaP, Unspecified 1999 Completed [facility] Formulation 00:00:00 [facility] Hep B, Adol or Pedi 1999 Completed Unive rsity of Dosage 00:00:00 [facility] HIB 4 Dose Schedule 1999 Completed [facility]ive rsity of 00:00:00 [facility] IPV 1999 Completed [facility] 00:00:00 [facility] DTaP, Unspecified 1999 Completed [facility] Formulation 00:00:00 [facility] Hep B, Adol or Pedi 1999 Completed Unive rsity of Dosage 00:00:00 [facility] HIB 4 Dose Schedule 1999 Completed Unive rsity of 00:00:00 [facility] IPV 1999 Completed [facility] 00:00:00 [facility] DTaP, Unspecified 1999 Completed [facility] Formulation 00:00:00 [facility] Hep B, Adol or Pedi 1999 Completed [facility]ive rsity of Dosage 00:00:00 [facility] HIB 4 Dose Schedule 1999 Completed [facility]ive rsity of 00:00:00 [facility] IPV 1999 Completed [facility] 00:00:00 [facility] DTaP, Unspecified 1999 Completed [facility] Formulation 00:00:00 [facility] Hep B, Adol or Pedi 1999 Completed [facility]ive rsity of Dosage 00:00:00 [facility] HIB 4 Dose Schedule 1999 Completed [facility]ive rsity of 00:00:00 [facility] IPV 1999 Completed [facility] 00:00:00 [facility] DTaP, Unspecified 1999 Completed [facility] Formulation 00:00:00 [facility] Hep B, Adol or Pedi 1999 Completed Unive rsity of Dosage 00:00:00 [facility] HIB 4 Dose Schedule 1999 Completed Unive rsity of 00:00:00 [facility] IPV 1999 Completed [facility] 00:00:00 [facility] DTaP, Unspecified 1999 Completed [facility] Formulation 00:00:00 [facility] Hep B, Adol or Pedi 1999 Completed Unive rsity of Dosage 00:00:00 [facility] HIB 4 Dose Schedule 1999 Completed Unive rsity of 00:00:00 [facility] IPV 1999 Completed [facility] 00:00:00 [facility] DTaP, Unspecified 1999 Completed [facility] Formulation 00:00:00 [facility] Hep B, Adol or Pedi 1999 Completed [facility]ive rsity of Dosage 00:00:00 [facility] HIB 4 Dose Schedule 1999 Completed Unive rsity of 00:00:00 [facility] IPV 1999 Completed [facility] 00:00:00 [facility] DTaP, Unspecified 1999 Completed [facility] Formulation 00:00:00 [facility] Hep B, Adol or Pedi 1999 Completed Unive rsity of Dosage 00:00:00 [facility] HIB 4 Dose Schedule 1999 Completed [facility] rsity of 00:00:00 [facility] IPV 1999 Completed [facility] 00:00:00 [facility] DTaP, Unspecified 1999 Completed [facility] Formulation 00:00:00 [facility] Hep B, Adol or Pedi 1999 Completed Unive rsity of Dosage 00:00:00 [facility] HIB 4 Dose Schedule 1999 Completed [facility] rsity of 00:00:00 [facility] IPV 1999 Completed [facility] 00:00:00 [facility] DTaP, Unspecified 1999 Completed [facility] Formulation 00:00:00 [facility] Hep B, Adol or Pedi 1999 Completed [facility]ive rsity of Dosage 00:00:00 [facility] HIB 4 Dose Schedule 1999 Completed [facility]ive rsity of 00:00:00 [facility] IPV 1999 Completed [facility] 00:00:00 [facility] DTaP, Unspecified 1999 Completed [facility] Formulation 00:00:00 [facility] Hep B, Adol or Pedi 1999 Completed [facility] rsity of Dosage 00:00:00 [facility] HIB 4 Dose Schedule 1999 Completed Unive rsity of 00:00:[address] [facility] IPV 1999 Completed [facility] 00:00:00 [facility] Hep B, Adol or Pedi 1999 Completed Unive rsity of Dosage 00:00:00 [facility] Hep B, Adol or Pedi 1999 Completed [facility] rsity of Dosage 00:00:00 [facility] Hep B, Adol or Pedi 1999 Completed [facility] rs[facility] of Dosage 00:00:00 [facility] Hep B, Adol or Pedi 1999 Completed [facility]ive rsity of Dosage 00:00:00 [facility] Hep B, Adol or Pedi 1999 Completed [facility] rsity of Dosage 00:00:00 [facility] Hep B, Adol or Pedi 1999 Completed [facility] rs[facility] of Dosage 00:00:00 [facility] Hep B, Adol or Pedi 1999 Completed [facility] rsity of Dosage 00:00:00 [facility] Hep B, Adol or Pedi 1999 Completed [facility] rsity of Dosage 00:00:00 [facility] Hep B, Adol or Pedi 1999 Completed [facility]ive rsity of Dosage 00:00:00 [facility] Hep B, Adol or Pedi 1999 Completed [facility] rsity of Dosage 00:00:00 [facility] Hep B, Adol or Pedi 1999 Completed [facility] rsity of Dosage 00:00:00 [facility] Hep B, Adol or Pedi 1999 Completed [facility] rs[facility] of Dosage 00:00:00 [facility] Hep B, Adol or Pedi 1999 Completed Unive rsity of Dosage 00:00:[address] [facility] SARS-COV-2 COVID-19 Unknown Completed Unive rsity of PFIZER VACCINE [facility] SARS-COV-2 COVID-19 Unknown Completed Unive rsity of PFIZER VACCINE [facility] TDAP Unknown Completed [facility] DTaP, Unspecified Unknown Completed [facility] Formulation [facility] DTaP, Unspecified Unknown Completed [facility]ulation [facility] HEPATITIS A Unknown Completed [facility] HEPATITIS A Unknown Completed [facility] Hep B, Adol or Pedi Unknown Completed Unive rsity of Dosage [facility] Hep B, Adol or Pedi Unknown Completed Un[facility] rs[facility] of Dosage [facility] Hep B, Adol or Pedi Unknown Completed Un[facility] rsity of Dosage [facility] HIB 4 Dose Schedule Unknown Completed Unive rsity [facility] HIB 4 Dose Schedule Unknown Completed Unive rsity [facility] HIB 4 Dose Schedule Unknown Completed [facility]ive rs[facility] HIB 4 Dose Schedule [facility] Completed [facility] (groups A, C, Y and Branc h W-135) conjugate vaccine (MCV4P) Meningococcal Unknown Completed [facility] (groups A, C, Y and Branc h W-135) conjugate vaccine (MCV4P) MMR Unknown Completed [facility] MMR Unknown Completed [facility] MMR Unknown Completed [facility] IPV Unknown Completed [facility] IPV Unknown Completed [facility] IPV Unknown Completed [facility] IPV Unknown Completed [facility] IPV Unknown Completed [facility] TDAP Unknown Completed [facility] Varicella Unknown Completed [facility] (varivax[facility]chicken [facility] pox[facility] Varicella Unknown Completed [facility] (varivax[facility]chicken [facility] pox[facility] DTP Unknown Completed [facility] Influenza Virus Unknown Completed [facility] Vaccine Quad IM [facility] Multi-dose 6+ [facility] Branch Flu Trivalent Unknown Completed [facility] Flu Trivalent Unknown Completed [facility] SARS-COV-2 COVID-19 Unknown Completed Unive rsity of PFIZER VACCINE [facility] SARS-COV-2 COVID-19 Unknown Completed Unive rsity of PFIZER VACCINE [facility] TDAP Unknown Completed [facility] DTaP, Unspecified Unknown Completed [facility] DTaP, Unspecified Unknown Completed [facility] HEPATITIS A Unknown Completed [facility] HEPATITIS A Unknown Completed [facility] Hep B, Adol or Pedi Unknown Completed Unive rsity of Dosage [facility] Hep B, Adol or Pedi Unknown Completed Un[facility] rsity of Dosage [facility] Hep B, Adol or Pedi Unknown Completed Un[facility] rsity of Dosage [facility] HIB 4 Dose Schedule Unknown Completed Unive rsity of [facility] HIB 4 Dose Schedule Unknown [facility] Dose Schedule [facility] 4 Dose Schedule Unknown [facility] M[facility]ococcal Unknown Completed [facility] (groups A, C, Y and Branc h W-135) conjugate vaccine (MCV4P) Meningococcal Unknown Completed [facility] (groups A, C, Y and Branc h W-135) conjugate vaccine (MCV4P) MMR Unknown Completed [facility] MMR Unknown Completed [facility] MMR Unknown Completed [facility] Unknown [facility] [place] IPV Unknown Completed [facility] [place] IPV Unknown Completed [facility] [place] IPV Unknown Completed [facility] [place] IPV Unknown Completed [facility] [place] TDAP Unknown Completed [facility] [place] Varicella Unknown Completed [facility] (varivax)(chicken [place] [facility] pox) [facility] Varicella Unknown Completed [facility] (varivax)(chicken [place] [facility] pox) [facility] DTP Unknown Completed [facility] [place] Influenza Virus Unknown Completed Univers[facility] y of Vaccine Quad IM [place] [facility] Multi-dose 6+ MO Branch Flu Trivalent Unknown Completed [facility] [place] Flu Trivalent Unknown Completed [facility] [place] SARS-COV-2 COVID-19 Unknown Completed Unive rsity of PFIZER VACCINE [facility] SARS-COV-2 COVID-19 Unknown Completed Unive rsity of PFIZER VACCINE [facility] TDAP Unknown Completed [facility] [place] DTaP, Unspecified Unknown Completed Univers ity of Formulation [facility] DTaP, Unspecified Unknown Completed Univers ity of Formulation [facility] HEPATITIS A Unknown Completed [facility] [place] HEPATITIS A Unknown Completed [facility] [place] Hep B, Adol or Pedi Unknown Completed Unive rsity of Dosage [facility] Hep B, Adol or Pedi Unknown Completed Unive rsity of Dosage [facility] Hep B, Adol or Pedi Unknown Completed Unive rsity of Dosage [facility] HIB 4 Dose Schedule Unknown Com[facility] 4 Dose Schedule Unknown Com[facility] 4 Dose Schedule Unknown Com[facility] HIB 4 Dose Schedule Unknown Completed [facility] [place] Meningococcal Unknown Completed [facility] (groups A, C, Y and Branc h W-135) conjugate vaccine (MCV4P) Meningococcal Unknown Completed [facility] (groups A, C, Y and Branc h W-135) conjugate vaccine (MCV4P) MMR Unknown Completed [facility] [place] MMR Unknown Completed [facility] [place] MMR Unknown Completed [facility] [place] IPV Unknown Completed [facility] [place] IPV Unknown Completed [facility] [place] IPV Unknown Completed [facility] [place] IPV Unknown Completed [facility] [place] IPV Unknown Completed [facility] [place] TDAP Unknown Completed [facility] [place] Varicella Unknown Completed [facility] (varivax)(chicken [place] [facility] pox) [facility] Varicella Unknown Completed [facility] (varivax)(chicken [place] [facility] pox) [place] DTP Unknown Completed [facility] [place] Influenza Virus Unknown Completed [facility] of Vaccine Quad IM [place] [facility] Multi-dose 6+ MO [place] Flu Trivalent Unknown Completed [facility] [place] Flu Trivalent Unknown Completed [facility] [place] Vital Signs Vital Name Observation Time Observation Value Comments Source Systolic blood 2023-02-18 15:40:00 118 mm[Hg] [facility] 2023-02-18 15:40:00 70 [facility]Hg[facility] 2023-02-18 15:40:00 77 /min [facility] Respiratory rate 2023-02-18 15:40:00 18 /min [facility] Body height 2023-02-18 15:40:00 170.2 cm [facility] Body weight 2023-02-18 15:40:00 117.935 kg [facility] BMI 2023-02-18 15:40:00 40.72 kg/m2 [facility] Oxygen saturation in 2023-02-18 15:40:00 96 /min [facility] Arterial blood by [facility] Pulse oximetry Branch Systolic blood 2023-01-10 16:30:00 119 mm[Hg] Univer sity [facility] Diastolic blood 2023-01-10 16:30:00 84 mm[Hg] [facility] rate 2023-01-10 16:30:00 80 /min [facility] Respiratory rate 2023-01-10 16:30:00 18 /min [facility] [place] [facility] Body height 2023-01-10 16:30:00 170.2 cm [facility] [place] [facility] Body weight 2023-01-10 16:30:00 117.935 kg [facility] [place] [facility] BMI 2023-01-10 16:30:00 40.72 kg/m2 [facility] [place] [facility] Oxygen saturation in 2023-01-10 16:30:00 94 /min University of Arterial blood by [place] [employer] [facility] Pulse oximetry Branch Systolic blood 2022-12-28 20:57:00 113 mm[Hg] Univer sity of pressure [facility] Diastolic blood 2022-12-28 20:57:00 81 mm[Hg] Unive rsity of [facility] Heart rate 2022-12-28 20:57:00 78 /min [facility] Body temperature 2022-12-28 20:57:00 36.56 Reina [facility] Respiratory rate 2022-12-28 20:57:00 18 /min Univ [facility] Body height 2022-12-28 20:57:00 170.2 cm [facility] [place] [facility] Body weight 2022-12-28 20:57:00 118.389 kg [facility] [place] [facility] BMI 2022-12-28 20:57:00 40.88 kg/m2 [facility] Oxygen saturation in 2022-12-28 20:57:00 97 /min University of Arterial blood by [place] [employer] lupis Pulse oximetry Branch Systolic blood 2022-12-14 15:17:00 126 mm[Hg] Univer sity of pressure [facility] Diastolic blood 2022-12-14 15:17:00 89 mm[Hg] Unive rsity of [facility] Heart rate 2022-12-14 15:17:00 89 /min [facility] [place] [facility] Body temperature 2022-12-14 15:17:00 37.06 Reina [facility] [place] [facility] Respiratory rate 2022-12-14 15:17:00 18 /min Univ [facility] [place] [facility] Body height 2022-12-14 15:17:00 170.2 cm [facility] [place] [facility] Body weight 2022-12-14 15:17:00 117.799 kg [facility] [place] [facility] BMI 2022-12-14 15:17:00 40.67 kg/m2 [facility] [place] [facility] Oxygen saturation in 2022-12-14 15:17:00 97 /min University of Arterial blood by [facility] Pulse oximetry Branch Systolic blood 2022-06-29 14:28:00 107 mm[Hg] Univer sity of pressure [facility] Diastolic blood 2022-06-29 14:28:00 73 mm[Hg] Unive rsity of [facility] Heart rate 2022-06-29 14:28:00 84 /min [facility] [place] [facility] Body temperature 2022-06-29 14:28:00 36.67 Reina [facility] [place] [facility] Respiratory rate 2022-06-29 14:28:00 16 /min Univ [facility] [place] [facility] Body height 2022-06-29 14:28:00 170.2 cm [facility] [place] [facility] Body weight 2022-06-29 14:28:00 108.274 kg [facility] BMI 2022-06-29 14:28:00 37.39 kg/m2 [facility] [place] [facility] Oxygen saturation in 2022-06-29 14:28:00 97 /min University of Arterial blood by [facility] Pulse oximetry Branch Systolic blood 2022-06-17 15:51:00 114 mm[Hg] Univer sity of pressure [facility] Diastolic blood 2022-06-17 15:51:00 78 mm[Hg] Unive rsity of pressure [facility] Heart rate 2022-06-17 15:51:00 62 /min [facility] [place] [facility] Body temperature 2022-06-17 15:51:00 36.78 Reina [facility] [place] [facility] Respiratory rate 2022-06-17 15:51:00 18 /min Univ [facility] [place] [facility] Body height 2022-06-17 15:51:00 170.2 cm [facility] Body weight 2022-06-17 15:51:00 109.317 kg [facility] [place] [facility] BMI 2022-06-17 15:51:00 37.75 kg/m2 [facility] Procedures Procedure Date / Time Performing Clinician Source Performed ASSIGNMENT OF BENEFITS 2022-12-28 20:44:41 Doctor Unassigned, No [facility] URINALYSIS 2022-12-14 15:55:00 [facility] FREE T4 2022-12-14 15:52:00 [facility] THYROID STIMULATING 2022-12-14 15:52:00 [facility] HORMONE [facility] COMP. METABOLIC PANEL 2022-12-14 15:52:00 [facility] ([id number]) [facility] LIPID PANEL 2022-12-14 15:52:00 [facility] ([id number])(TOTAL [facility] CHOLESTEROL, TRIGLYCERIDES, HDL) CBC WITH DIFF 2022-12-14 15:52:00 [facility] DISCLOSURE AND CONSENT, 2022-06-17 05:01:00 Doctor Unassigned, N o [facility] MEDICAL AND SURGICAL [facility] nc PROCEDURES POCT TEST 2022-06-17 00:00:00 Keli Gillette [facility] DME/SUPPLY JUSTIFICATION 2022-05-24 05:01:00 Doctor Unassigned, No [facility] Encounters Start End Encounter Admission Attending Care Care Encounter Source Date/Time Date/Time Type Type Clinicians Facility Department ID 2022-05-08 Outpatient P KELI GILLETTE [facility] HERNA[facility]Z [id number] Univers 19:39:33 [facility] 2022-05-04 Outpatient P KELI GILLETTE [facility] [id number] Univers 16:27:32 [facility] 2021-12-20 Outpatient P [facility] [id number] Univers 11:34:57 [facility] 2023-07-12 2023-07-12 Refill PATT Sevilla 1.2.840.114 [id number] Univers 00:00:00 00:00:00 Collins KESSLER 350.1.13.10 i [facility] 4.2.7.2.686 Luis Felipe shen PROFESSIO [id number] Ok dical NAL [facility] Branch BUILDING 2023-07-12 2023-07-12 [facility] 1.2.840.114 [id number] Univers 00:00:00 00:00:00 Collins KESSLER 350.1.13.10 i ty [place] [id number] Ok dic[address] 2023-05-27 2023-05-27 [facility] [id number] Univers 10:00:00 10:00:00 COLLINS tamir [facility] 2023-05-24 2023-05-24 Outpatient R YANGDILEEPC[facility]SEA [facility] B [id number] Univers 15:30:00 15:30:00 CHELSEA NOEL [facility] 2023-02-21 2023-02-21 [facility] [id number] Univers 11:30:00 11:30:00 COLLINS ittamir [facility] 2023-02-18 2023-02-18 [facility] [id number] Univers 10:30:00 10:56:52 [facility] 2023-02-18 2023-02-18 [facility] 1.2.840.114 [id number] Univers 10:30:00 10:56:52 Visit Collins KESSLER 350.1.13.10 i [place] [id number] [address] 2023-02-18 2023-02-18 Patient Doctor STEVO 1.2.840.114 [id number] Univers 00:00:00 00:00:00 Secure Msg Unassigned, JOEL 350.1.13.10 [facility] 4.2.7.2.686 Marco as [id number] [address] 2023-02-17 2023-02-17 [facility] [id number] Univers 15:00:00 15:00:00 COLLINS tamir [facility] 2023-02-06 2023-02-06 [facility] 1.2.840.114 [id number] Univers 00:00:00 00:00:00 Collins KESSLER 350.1.13.10 i ty [place] 4.2.7.2.[place] [id number] Ok dical NAL [address] [place] [address] 2023-01-27 2023-01-27 Outpatient R [facility] [id number] Univers 11:30:00 11:30:00 COLLINS serrano [facility] 2023-01-25 2023-01-25 Outpatient R [facility] [id number] Univers 10:00:00 10:00:00 COLLINS serrano [facility] 2023-01-24 2023-01-24 Refill [facility] 1.2.840.114 [id number] Univers 00:00:00 00:00:00 Collins DAWNRAVI 350.1.13.10 i [facility] 4.2.7.2.[place] [id number] Ok dicsc NAL [address] [place] [address] 2023-01-10 2023-01-10 Outpatient R [facility] [id number] Univers 11:30:00 11:50:05 COLLINS [facility] 2023-01-10 2023-01-10 Office [facility] 1.2.840.114 [id number] Univers 11:30:00 11:50:05 Visit Collins VICTORIA 350.1.13.10 i [facility] 4.2.7.2.[place] [id number] Ok dical NAL [address] [place] [address] 2022-12-28 2022-12-28 Outpatient R [facility] [id number] Univers 15:30:00 16:05:50 COLLINS serrano [facility] 2022-12-28 2022-12-28 Office [facility] 1.2.840.114 [id number] Univers 15:30:00 16:05:50 Visit Collins DAWNRAVI 350.1.13.10 i ty [facility] 4.2.7.[place] [id number] Ok dical NAL [address] [place] [address] 2022-12-28 2022-12-28 Orders Doctor STEVO 1.2.840.114 [id number] Univers 00:00:00 00:00:00 Only Unassigned, JOEL 350.1.13.10 ity of [place] [facility] 4.2.7.2.686 Marco as [id number] [facility] 009 Branch 2022-12-16 2022-12-16 Patient Abdelrahman [facility] 1.2.840.114 [id number] Univers 00:00:00 00:00:00 Secure Msg Collins CECELIA 350.1.13.10 ity of [facility] 4.2.7.2.686 [place] [id number] [facility] AND MARGARITA 044 [facility] 2022-12-14 2022-12-14 Electric System Operator 2, Adc Lab [facility] 1.2.840.114 [id number] Univers 10:00:00 10:15:00 Visit Collins Sevilla 350.1.13.10 it[place].2.[place] [id number] Ok dical NAL [address] [facility] 2022-12-14 2022-12-14 Office Abdelrahman [facility] 1.2.840.114 [id number] Univers 09:30:00 09:42:20 Visit Collins KESSLER 350.1.13.10 i ty [place].2.[place].2.[place] [id number] Ok dical NAL 0[address] [facility] 2022-12-14 2022-12-14 Outpatient R ABDELRAHMAN [facility] [id number] Univers 09:30:00 09:42:20 COLLINS serrano [facility] 2022-12-02 2022-12-02 Outpatient R EFRAIN, [facility] [id number] Univers 19:00:00 19:00:00 ATTENDING ity [facility] 2022-08-06 2022-08-06 Outpatient R CAITIE LEI [facility] [id number] Univers 14:30:00 14:30:00 ity [facility] 2022-07-13 2022-07-13 Outpatient R KELI GILLETTE [facility] [id number] Univers 13:15:00 13:15:[address] [facility] 2022-07-08 2022-07-08 Outpatient R KELI GILLETTE [facility] [id number] Univers 14:30:00 14:30:[address] [facility] 2022-06-29 2022-06-29 Outpatient R KELI GILLETTE [facility] [id number] Univers 09:30:00 09:52:[address] [facility] 2022-06-29 2022-06-29 Office Keli Gillette KYBULMARO ZAMORA 1.2.840.114 [id number] Univers 09:30:00 09:52:56 Visit YASMEEN 350.1.13.10 it y [place] [id number] [address] 2022-06-17 2022-06-17 Outpatient R KELI GILLETTE [facility] [id number] Univers 10:30:00 11:38:13 ity [facility] 2022-06-17 2022-06-17 Office Keli Gillette [facility] 1.2.840.114 [id number] Univers 10:30:00 11:38:13 Visit YASMEEN 350.1.13.10 it y [place] [id number] [address] 2022-06-17 2022-06-17 Orders Doctor STEVO 1.2.840.114 [id number] Univers 00:00:00 00:00:00 Only Unassigned, JOEL 350.1.13.10 ity of [place] [facility] 4.2.7.2.686 [place] as [id number] [address] 2022-05-27 2022-05-27 Outpatient R KELI GILLETTE [facility] [id number] Univers 09:45:00 10:25:48 ity [facility] 2022-05-27 2022-05-27 Routine Keli Gillette ZAMORA 1.2.840.114 [id number] Univers 09:45:00 10:25:48 YASMEEN 350.1.13.10 i ty of Visit [place]2.[place] [id number] [address] 2022-05-27 2022-05-27 Telephone Keli Gillette 1.2.840.11 [id number] Univers 00:00:00 00:00:00 YASMEEN 350.1.13.10 it y [place] 4.2.7.2.686 [place] [id number] [address] 2022-05-27 2022-05-27 Telephone Keli Gillette ZAMORA 1.2.840.11 [id number] Univers 00:00:00 00:00:00 YASMEEN 350.1.13.10 it y of [place] 4.2.7.2.686 [facility] [id number] [address] 2022-05-24 2022-05-24 Orders Doctor STEVO 1.2.840.114 [id number] Univers 00:00:00 00:00:00 Only Unassigned, JOEL 350.1.13.10 ity of [place] [facility] 4.2.7.2.686 [facility] [id number] [facility] [address] 2022-05-14 2022-05-14 Telephone Keli Gillette SEDALIA 1.2.840.11 [id number] Univers 00:00:00 00:00:00 YASMEEN 350.1.13.10 it y of [facility] 4.2.7.2.686 [facility] [id number] [address] 2022-05-06 2022-05-09 Inpatient P KELI GILLETTE [facility] [id number] Univers 11:16:00 14:20:[address] [facility] 2022-05-06 2022-05-09 Hospital Keli Gillette 1.2.840.114 [id number] Univers 11:16:00 14:20:00 Encounter VICTORIA 350.1.13.10 ity of [place] 4.2.7.2.686 [facility] [id number] [facility] [address] 2022-05-08 2022-05-08 Refill Caitie Lei PATT SEDALIA 1.2.840.114 [id number] Univers 00:00:00 00:00:00 Cam YASMEEN 350.1.13.10 it y of WOMEN'S 4.2.7.2.[address] [facility] [id number] [facility] 134 Branch 2022-05-07 2022-05-07 Anesthesia Regan Santillan [facility] 1.2.840.114 [id number] Univers 14:20:00 21:48:00 Event OnealJaden shen 350.1.13. 10 [facility] 4.2.7.2.686 [facility] [id number] [place] 879203 [place] 2022-05-07 2022-05-07 Anesthesia Salvatore Franklin [facility] 1.2.8 40.114 [id number] Univers 10:48:23 10:48:23 Event OnealJaden 350.1.13. 10 [facility] 4.2.7.2.686 [facility] [id number] [place] 879203 Branch 2022-05-06 2022-05-06 Inpatient P NAIN KELI [facility] [id number] Univers 11:16:00 11:16:[address] [facility] 2022-05-04 2022-05-04 Laboratory Only, Adc Test [facility] 1.2.840. 114 [id number] Univers 16:30:00 16:45:00 Only Keli Gillette 350.1.13.10 [facility] 4.2.7.2.[address] [place] [address] [id number] [facility] 353 Branch 2022-05-04 2022-05-04 Outpatient R NAIN KELI [facility] [id number] Univers 16:30:00 16:30:[address] [facility] 2022-05-04 2022-05-04 Outpatient R KELI GILLETTE [facility] [id number] Univers 16:30:00 16:30:[address] [facility] 2022-05-03 2022-05-03 Case Nain Keli [facility] ZAMORA 1.2.840.114 [id number] Univers 00:00:00 00:00:00 Management YASMEEN 350.1.13.10 [place] [facility] [id number] [address] 2022-05-03 2022-05-03 Telephone Keli Gillette [facility] 1.2.840.11 [id number] Univers 00:00:00 00:00:00 YASMEEN 350.1.13.10 it [place] [id number] [address] 2022-05-03 2022-05-03 Orders Doctor STEVO 1.2.840.114 [id number] Univers 00:00:00 00:00:00 Only Unassigned, JOEL 350.1.13.10 ity of [place] [facility] 4.2.7.2.686 Marco as [id number] [address] 2022-04-29 2022-04-29 Outpatient R KELI GILLETTE [facility] [id number] Univers 13:00:00 13:33:[address] [facility] 2022-04-29 2022-04-29 Routine Keli Gillette [facility] 1.2.840.114 [id number] Univers 13:00:00 13:33:10 YASMEEN 350.1.13.10 i ty of Visit [place].2.[place] [id number] [address] 2022-04-26 2022-04-26 Electric System Operator Candido, Neil Lab Main [facility] 1.2.8 40.114 [id number] Univers 13:15:00 13:30:00 Visit Keli GilletteRAVI 350.1.13.10 [place] 4.[place].2.[place] [id number] Ok dical [address] 2022-04-26 2022-04-26 Outpatient R KELI GILLETTE [facility] [id number] Univers 13:15:00 13:15:[address] [facility] 2022-04-26 2022-04-26 Orders Doctor [place] 1.2.840.114 [id number] Univers 00:00:00 00:00:00 Only Unassigned, JOEL 350.1.13.10 ity of [place] [facility] 4.2.7.2.686 [place] as [id number] [address] 2022-04-22 2022-04-22 Outpatient R KELI GILLETTE [facility] [id number] Univers 13:00:00 13:28:[address] [facility] 2022-04-22 2022-04-22 Routine Keli Gillette 1.2.840.114 [id number] Univers 13:00:00 13:28:27 YASMEEN 350.1.13.10 i ty of [place] [id number] [address] 2022-04-14 2022-04-14 Orders Doctor STEVO 1.2.840.114 [id number] Univers 00:00:00 00:00:00 Only Unassigned, JOEL 350.1.13.10 ity of [place] [address].2.7.2.686 Marco as [id number] [address] 2022-04-13 2022-04-13 Outpatient R KELI GILLETTE [facility] [id number] Univers 14:45:00 17:00:13 ity [facility] 2022-04-13 2022-04-13 Routine Keli Gillette [facility] 1.2.840.114 [id number] Univers 14:45:00 17:00:13 YASMEEN 350.1.13.10 i ty of [place] [id number] [address] 2022-04-06 2022-04-06 Outpatient R KELI GILLETTE [facility] [id number] Univers 16:00:00 16:50:56 ity [facility] 2022-04-06 2022-04-06 Routine Keli Gillette [facility] ZAMORA 1.2.840.114 [id number] Univers 16:00:00 16:50:56 YASMEEN 350.1.13.10 i ty of [place] [id number] [address] 2022-03-18 2022-03-19 Outpatient R KELI GILLETTE [facility] [id number] Univers 16:15:00 15:27:32 ity [facility] 2022-03-18 2022-03-19 Routine Keli Gillette [facility] 1.2.840.114 [id number] Univers 16:15:00 15:27:32 YASMEEN 350.1.13.10 i ty of [place] [id number] [address] 2022-03-04 2022-03-04 Outpatient R KELI GILLETTE [facility] [id number] Univers 16:15:00 [facility]:39:[facility]22-[facility]-04 2022-03-04 Routine Keli Gillette [facility] 1.2.840.114 [id number] Univers 16:15:00 16:39:04 YASMEEN 350.1.13.10 i ty of [place] 4[place].2.[place] [id number] [address] 2022-02-19 2022-02-19 Telephone Keli Gillette [facility] 1.2.840.114 [id number] Univers 00:00:00 00:00:00 [place] 350.1.13.10 i ty of [place] 4.2.7.2.[place] [id number] Ok dic[address] 2022-02-19 2022-02-19 Telephone Keli Gillette [facility] 1.2.840.114 [id number] Univers 00:00:00 00:00:00 [place] 350.1.13.10 i ty of [place] 4.2.7.2.686 [place] [id number] Ok dical [address] 2022-02-19 2022-02-19 Telephone Keli Gillette [facility] 1.2.840.114 [id number] Univers 00:00:00 00:00:00 [place] 350.1.13.10 [place] [phone] [place] dic[address] 2022-02-18 2022-02-18 Outpatient R KELI GILLETTE [facility] [id number] Univers 16:15:00 17:00:[address] [facility] 2022-02-18 2022-02-18 Routine Keli Gillette [facility] 1.2.840.114 [id number] Univers 16:15:00 17:00:11 [place] 350.1.13.10 i ty of [place] [facility] [phone] [facility] [address] 2022-02-10 2022-02-10 Electric System Operator 2, [facility] Us Room UNIVERSIT 1 .2.840.114 [id number] Univers 15:15:00 16:23:02 Visit Keli Gillette [facility] 350.1.13.10 ity of Sushil Rm [facility] 4.2.7.2.686 [place] [id number] [facility] [address] 2022-02-10 2022-02-10 Outpatient P MARKIE RMSAINTE [facility] [id number] Univers 15:15:00 16:23:02 [facility]-02-10 2022-02-10 Outpatient P MARKIE RMSAINTE [facility] [id number] Univers 15:15:00 15:15:00 JAG [facility] 2022-02-02 2022-02-02 Electric System Operator Candido, [facility] Main [facility] 1.2.8 40.114 [id number] Univers 15:30:00 15:45:00 Visit Keli Gillette VICTOR[place] 350.1.13.10 ity of [place] 4.2.7.2.686 [facility] [id number] Ok dical [facility] [address] [facility] 2022-02-02 2022-02-02 Outpatient R KELI GILLETTE [facility] [id number] Univers 15:30:00 15:30:00 ity [facility] 2022-02-02 2022-02-02 Orders Doctor STEVO 1.2.840.114 [id number] Univers 00:00:00 00:00:00 Only Unassigned, JOEL 350.1.13.10 ity of [place] [facility] 4.2.7.2.686 [place] [id number] [address] 2022-01-28 2022-01-28 Outpatient R KELI GILLETTE [facility] [id number] Univers 16:15:00 16:59:31 ity [facility] 2022-01-28 2022-01-28 Routine Keli Gillette [facility] 1.2.840.114 [id number] Univers 16:15:00 16:59:31 YASMEEN 350.1.13.10 i ty of [place] [id number] [address] 2022-01-21 2022-01-21 Telephone Keli Gillette [facility] 1.2.840.11 [id number] Univers 00:00:00 00:00:00 YASMEEN 350.1.13.10 it y [place] [id number] [address] 2022-01-20 2022-01-20 Electric System Operator Ultras[facility], [facility] 1.2 .840.114 [id number] Univers 14:45:00 15:45:23 Visit Mayra Crowley MANAGER FINANCIAL 350.1. 13.10 ity [facility] 4.2.7.2.686 [place] as MATERNAL [id number] [facility] ical & CHILD [address] [place] [address] 2022-01-20 2022-01-20 Outpatient P CARLINE [facility] [id number] Univers 14:45:00 14:45:00 MAYRA ity [facility] 2021-12-31 2021-12-31 Outpatient R KELI GILLETTE [facility] [id number] Univers 16:15:00 16:57:34 ity [facility] 2021-12-31 2021-12-31 Routine Keli Gillette [facility] 1.2.840.114 [id number] Univers 16:15:00 16:57:34 YASMEEN 350.1.13.10 i ty of [place] [id number] [address] 2021-12-22 2021-12-22 Electric System Operator 1, [facility] Us Room UNIVERSIT 1 .2.840.114 [id number] Univers 14:15:00 15:49:37 Visit Bandar Welsh [facility] 350.1 .13.10 ity of [facility] 4.2.7.2.686 [place] [id number] [facility] [address] 2021-12-22 2021-12-22 Outpatient P [facility] [id number] Univers 14:15:00 15:49:37 RAJENDRAI it y of S [facility] 2021-12-22 2021-12-22 Outpatient P [facility] [id number] Univers 14:15:00 14:15:00 RAJENDRAI it y of S, [facility] 2021-12-20 2021-12-20 Outpatient P QUIQUE [facility] HERNANDEZ [id number] Univers 10:03:00 11:15:[address] [facility] 2021-12-20 2021-12-20 [facility] Caitie Lei [facility] 1.2.840.114 [id number] Univers 10:03:00 11:15:00 Encounter Curry KESSLER 350.1.13.10 [place] [phone] [facility] [address] 2021-12-07 2021-12-07 Electric System Operator Candido, [facility] Main [facility] 1.2.8 40.114 [id number] Univers 16:15:00 16:15:00 Visit Keli Gillette 350.1.13.10 [place] [id number] Ok dical [facility] 353 [facility] 2021-12-07 2021-12-07 Outpatient R KELI GILLETTE [facility] [id number] Univers 16:15:00 16:13:22 ity [facility] 2021-12-07 2021-12-07 Orders Doctor [place] 1.2.840.114 [id number] Univers 00:00:00 00:00:00 Only Unassigned, JOEL 350.1.13.10 ity of [place] [facility] 4.2.7.2.686 [place] as [id number] [address] 2021-12-01 2021-12-01 Outpatient R KELI GILLETTE [facility] [id number] Univers 16:15:00 16:41:[address] [facility] 2021-12-01 2021-12-01 Routine Keli Gillette KYBULMARO SEDALIA 1.2.840.114 [id number] Univers 16:15:00 16:41:37 YASMEEN 350.1.13.10 i ty of Visit [place] [id number] [address] 2021-11-17 2021-11-17 Telephone Keli Gillette [facility] 1.2.840.11 [id number] Univers 00:00:00 00:00:00 YASMEEN 350.1.13.10 it y of WOMEN'S 4.2.7.2.686 [facility] [id number] [address] 2021-11-02 2021-11-02 Electric System Operator Candido, Neil Lab Main [facility] 1.2.8 40.114 [id number] Univers 15:45:00 16:00:00 Visit Caitie Lei 350.1.13.10 ity of Keli Gillette 4.2.7.2.686 [facility] [id number] Ok dic[address] 2021-11-02 2021-11-02 Outpatient R KELI GILLETTE [facility] [id number] Univers 15:45:00 15:45:[address] [facility] 2021-10-30 2021-10-30 Outpatient R KELI GILLETTE [facility] [id number] Univers 17:00:00 17:00:[address] [facility] 2021-10-30 2021-10-30 Orders Doctor STEVO 1.2.840.114 [id number] Univers 00:00:00 00:00:00 Only Unassigned, JOEL 350.1.13.10 ity of [place] [facility] 4.2.7.2.686 [place] [id number] [address] 2021-10-29 2021-10-29 [facility] 1.2.840.114 [id number] Univers 16:15:00 16:49:31 YASMEEN 350.1.13.10 i ty of [place] [id number] [address] 2021-10-29 2021-10-29 Outpatient R KELI GILLETTE [facility] [id number] Univers 16:15:00 16:49:[address] [facility] 2021-09-28 2021-09-28 Outpatient R KELI GILLETTE [facility] [id number] Univers 14:30:00 16:25:56 ity [facility] 2021-09-28 2021-09-28 Initial Keli Gillette [facility] 1.2.840.114 [id number] Univers 14:30:00 16:25:56 YASMEEN 350.1.13.10 i ty of [place] [id number] [address] 2021-09-28 2021-09-28 Orders Doctor STEVO 1.2.840.114 [id number] Univers 00:00:00 00:00:00 Only Unassigned, JOEL 350.1.13.10 ity of [place] [facility] 4.2.7.2.686 [place] [id number] [facility] [address] 2021-09-28 2021-09-28 Letter Keli Gillette [facility] 1.2.840.114 [id number] Univers 00:00:00 00:00:00 (Out) YASMEEN 350.1.13.10 it y [place] [id number] [address] 2021-05-11 2021-05-11 Emergency Nusrat Oliva [facility] 1.2.840.114 [id number] Univers 17:57:00 19:33:00 Destinee Kessler 350.1.13.10 i ty of [place] [id number] [facility] [address] 2021-05-11 2021-05-11 Emergency X [facility] ERT [id number] Univers 17:50:00 17:50:00 [facility] Results Test Description Test Time Test Comments Results Result Comments Source POCT TEST 2022-06-17 15:59:00 Test Item Value Reference Range Interpretation Comme nts POCT PREG (test code = 1605) Negative On board controls acceptable with C Line (test code = 3574) Yes POCT PREG LOT # (test code = 3575) POCT PREG TEST DATE (test code = 3576) [id number] 15:59:00 Test Item Value Reference Range Interpretation Comments POCT PREG (test code = 1605) Negative On board controls acceptable with C Yes Line (test code = 3574) POCT PREG LOT # (test code = 3575) POCT PREG TEST DATE (test code = 3576) [facility]
--- NOTE | 2023-07-15 08:07 | EDPHYS ---
Physician Documentation [facility] Name: Ruth Cortes Age: 22 yrs Sex: Female : 2000 Arrival Date: 07/15/2023 Time: 07:34 Bed 19 Private MD: ED Physician Ish Kim HPI: 07/15 07:55 This 22 yrs old Female presents to ER via Ambulatory with complaints of Back Pain. jh7 07:55 The patient presents with pain that is acute, with no known mechanism of injury. The jh7 symptoms are located in the coccyx area. Onset: The symptoms/episode began/occurred 3 day(s) ago. The pain does not radiate. Associated signs and symptoms: Pertinent positives: redness, Pertinent negatives: abdominal pain, chest pain, hematuria, nausea, tingling, urinary retention, vomiting, weakness. 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 - Social history:: Smoking status: Patient denies any tobacco usage or history of. ROS: 07:55 Constitutional: Negative for fever, chills, and weight loss, Eyes: Negative for injury, jh7 pain, redness, and discharge, ENT: Negative for injury, pain, and discharge, Neck: Negative for injury, pain, and swelling, Cardiovascular: Negative for chest pain, palpitations, and edema, Respiratory: Negative for shortness of breath, cough, wheezing, and pleuritic chest pain, Abdomen/GI: Negative for abdominal pain, nausea, vomiting, diarrhea, and constipation, MS/Extremity: Negative for injury and deformity, Neuro: Negative for headache, weakness, numbness, tingling, and seizure, 07:55 Back: Positive for pain at rest, pain with movement, Negative for injury or acute deformity, 07:55 Skin: Positive for erythema, of the L cleft, 07:55 All other systems are negative, Exam: 07:55 Constitutional: This is a well developed, well nourished patient who is awake, alert, jh7 and in no acute distress. Head/Face: Normocephalic, atraumatic. Eyes: Pupils equal round and reactive to light, extra-ocular motions intact. Lids and lashes normal. Conjunctiva and sclera are non-icteric and not injected. Cornea within normal limits. Periorbital areas with no swelling, redness, or edema. Neck: Trachea midline, no thyromegaly or masses palpated, and no cervical lymphadenopathy. Supple, full range of motion without nuchal rigidity, or vertebral point tenderness. No Meningismus. Cardiovascular: Regular rate and rhythm with a normal S1 and S2. No gallops, murmurs, or rubs. Normal PMI, no JVD. No pulse deficits. Respiratory: Lungs have equal breath sounds bilaterally, clear to auscultation and percussion. No rales, rhonchi or wheezes noted. No increased work of breathing, no retractions or nasal flaring. Abdomen/GI: Soft, non-tender, with normal bowel sounds. No distension or tympany. No guarding or rebound. No evidence of tenderness throughout. MS/ Extremity: Pulses equal, no cyanosis. Neurovascular intact. Full, normal range of motion. Neuro: Awake and alert, GCS 15, oriented to person, place, time, and situation. Cranial nerves II-XII grossly intact. Motor strength 5/5 in all extremities. Sensory grossly intact. Cerebellar exam normal. Normal gait. 07:55 Back: pain, that is moderate, ROM is painful, sitting down and flexion. 07:55 Skin: cellulitis, that is mild, on the coccyx/L cleft, 07:55 Skin: cellulitis, small indurated area on L cleft consistent with cellulitis/early abscess, 08:48 Neuro: Orientation: is normal, to person, place, time \T\ situation. Mentation: is jh7 normal, Memory: is normal, Cranial nerves: grossly normal, Cerebellar function: is grossly normal, Vital Signs: 07:45 BP 119 / 81; Pulse 112; Resp 16; Temp 98.5(O); Pulse Ox 100% on R/A; Weight 113.4 kg; hb Height 5 ft. 7 in. ; Pain 8/10; 07:45 Body Mass Index 39.16 (113.40 kg, 170.18 cm) hb 07:45 Pain Scale: Adult hb MDM: 07:56 Patient medically screened. [facility] 08:15 Differential diagnosis: Obesity Coccydynia, cellulitis, abscess. Data reviewed: vital [facility] signs, nurses notes. I considered the following discharge prescriptions or medication management in the emergency department Medications were administered in the Emergency Department. See MAR. Historians other than the Patient: Spouse/Significant Other: . Counseling: I had a detailed discussion with the patient and/or guardian regarding the historical points, exam findings, and any diagnostic results supporting the discharge/admit diagnosis, to return to the emergency department if symptoms worsen or persist or if there are any questions or concerns that arise at home. Response to treatment: the patient's symptoms have mildly improved after treatment. ED course: Pain likely due to cellulitis/early abscess. The area is extremely tender to palpation and the patient flinches when the skin is lightly touched. Agreed to give pain medicine and muscle relaxers due to the pain keeping her up at night, but likely infectious cause.. Administered Medications: 08:08 Drug: Ketorolac IM 60 mg IM once Route: IM; Site: left gluteus; kd3 08:18 Follow up: Response: No adverse reaction kd3 Disposition: 08:48 Co-signature as Attending Physician, Ish Kim MD I reviewed the patient's care rt provided by the Advanced Practice Provider and agree with the diagnosis and treatment plan. Disposition Summary: 07/15/23 08:06 Discharge Ordered Notes: Location: Home [facility] Problem: new [facility] Symptoms: are unchanged [facility] Condition: Stable [facility] Diagnosis - Cellulitis of buttock 7 - Coccydynia [facility] Followup: [facility] - With: Private Physician - When: 2 - 3 days - Reason: Recheck today's complaints Discharge Instructions: - Discharge Summary Sheet [facility] - Cellulitis, Adult [facility] Forms: - Family Work Release kd3 - Medication Reconciliation Form [facility] - Thank You Letter [facility] - Antibiotic Education [facility] - Patient Portal Instructions [facility] - Leadership Thank You Letter [facility] Prescriptions: - Naprosyn 500 mg Oral Tablet - take 1 tablet ORAL route 2 times per day take with food; 30 tablet; Refills: 0, [facility] Product Selection Permitted - Zanaflex 4 mg Oral Tablet - take 1 tablet ORAL route every 8 hours As needed; 20 tablet; Refills: 0, [facility] Product Selection Permitted - Bactrim DS 800-160 mg Oral Tablet - take 1 tablet ORAL route every 12 hours for 7 days; 14 tablet; Refills: 0, jh7 Product Selection Permitted Signatures: Mesha Bond, RN RN Cherelle Luna RN RN kd3 Tammy Ruiz, BAKERY ASSISTANT BAKERY ASSISTANT jh7 Ish Kim MD MD rt
--- NOTE | 2023-07-15 08:07 | ER ---
Nurse's Notes [facility] Name: Ruth Cortes Age: 22 yrs Sex: Female : 2000 Arrival Date: 07/15/2023 Time: 07:34 Bed 19 Private MD: Diagnosis: Cellulitis of buttock;Coccydynia Presentation: 07/15 07:45 Chief complaint: Tailbone pain 8/10 x 3 weeks. Denies injury. Coronavirus screen: At this time, the client does not indicate any symptoms associated with coronavirus-19. Ebola Screen: No symptoms or risks identified at this time. Initial Sepsis Screen: Does the patient meet any 2 criteria? No. Patient's initial sepsis screen is negative. Does the patient have a suspected source of infection? No. Patient's initial sepsis screen is negative. Risk Assessment: Do you want to hurt yourself or someone else? Patient reports no desire to harm self or others. Onset of symptoms was June 2023. 07:45 Method Of Arrival: Ambulatory hb 07:45 Acuity: SATYA 4 hb Triage Assessment: 07:46 General: Appears in no apparent distress. Behavior is calm, cooperative. Pain: Pain hb currently is 2 out of 10 on a pain scale. at worst was 8 out of 10 on a pain scale. Neuro: Level of Consciousness is awake, alert, obeys commands, Oriented to person, place, time, situation. Cardiovascular: Patient's skin is warm and dry. Respiratory: Respiratory effort is even, unlabored, Respiratory pattern is regular, symmetrical. Musculoskeletal: Reports tailbone pain. AUDIT REVIEWER: 07:46 LMP N/A - control method, Not hb Historical: - Allergies: 07:46 Zithromax; hb - Home Meds: 07:46 None [Active]; hb - PMHx: 07:46 None; hb - PSHx: 07:46 Ankle - Bilateral; hb - Immunization history:: Adult Immunizations up to date. - Social history:: Smoking status: Patient denies any tobacco usage or history of. Screenin:47 [facility] ED Fall Risk Assessment (Adult) Score/Fall Risk Level 0 - 2 = Low Risk hb Oriented to surroundings, Maintained a safe environment. Abuse screen: Denies threats or abuse. Denies injuries from another. Nutritional screening: No deficits noted. Tuberculosis screening: No symptoms or risk factors identified. Assessment: 07:47 General: See triage assessment. hb 07:54 General: Appears uncomfortable, Behavior is calm, cooperative. Neuro: Level of kd3 Consciousness is awake, alert, obeys commands, Oriented to person, place, time, situation. Cardiovascular: Patient's skin is warm and dry. Respiratory: Airway is patent Trachea midline Respiratory effort is even, unlabored, Respiratory pattern is regular, symmetrical. Vital Signs: 07:45 BP 119 / 81; Pulse 112; Resp 16; Temp 98.5(O); Pulse Ox 100% on R/A; Weight 113.4 kg; hb Height 5 ft. 7 in. ; Pain 8/10; 07:45 Body Mass Index 39.16 (113.40 kg, 170.18 cm) hb 07:45 Pain Scale: Adult hb ED Course: 07:36 Patient arrived in ED. rg4 07:46 Triage completed. hb 07:46 Arm band placed on. hb 07:47 Patient has correct armband on for positive identification. Provided Education on: . hb 07:54 Cherelle Luna RN is Primary Nurse. kd3 07:55 Tammy Ruiz FNP is PHCP. jh7 07:55 Ish Kim MD is Attending Physician. jh7 07:56 Tammy Ruiz FNP is PHCP. jh7 07:56 Ish Kim MD is Attending Physician. jh7 08:17 No provider procedures requiring assistance completed. Patient did not have IV access kd3 during this emergency room visit. Administered Medications: 08:08 Drug: Ketorolac IM 60 mg IM once Route: IM; Site: left gluteus; kd3 08:18 Follow up: Response: No adverse reaction kd3 Medication: 07:47 VIS not applicable for this client. hb Outcome: 08:06 Discharge ordered by . jh7 08:17 Discharged to home ambulatory, kd3 08:17 Condition: stable 08:17 Discharge instructions given to patient, family, Instructed on discharge instructions, follow up and referral plans. medication usage, Demonstrated understanding of instructions, follow-up care, medications, Prescriptions given X 3, 08:18 Patient left the ED. kd3 Signatures: Mesha Bond RN RN hb Garcia, Rubi rg4 Cherelle Luna RN RN kd3 Tammy Ruiz, INDUSTRIAL REGISTERED NURSE INDUSTRIAL REGISTERED NURSE jh7
[2023-07-15] MEDS ORDERED: KETOROLAC 30 MG/ML INJ ONE (08:16)
[2023-07-15 08:32] VITALS: BP 119/81; TEMP 98.5; O2SAT 100
== END 2023-07-15 08:18 | disposition home or self-care (01) ==
LOC: ER 07:34
DX: L03.317 Cellulitis of buttock (principal); M53.3 Sacrococcygeal disorders, not elsewhere classified; Z88.1 Allergy status to other antibiotic agents
CPT/HCPCS: 96372; 99284